=== PATIENT | female | born 1990 | race Caucasian/White ===

== ENCOUNTER 2017-08-07 19:49 | Emergency (ER) | payer OTHER ==
[2017-08-07] MEDS ORDERED: Phenergan 25 MG INJ IV ONE (20:28)
[2017-08-07] MEDS ORDERED: SUBLIMAZE 100 MCG/2 ML IV ONE (20:28)
[2017-08-07] MEDS ORDERED: Sodium Chloride 0.9% 1000 ML 1,000 ML IV STA ×2 (20:28→22:11)
[2017-08-07] MEDS ORDERED: SUBLIMAZE 100 MCG/2 ML ONE (20:33)
[2017-08-07] MEDS ORDERED: Phenergan 25 MG INJ ONE (20:33)
[2017-08-07] MEDS ORDERED: Sodium Chloride 0.9% 1000 ML 1,000 ML ONE ×2 (20:34→22:34)
--- NOTE | 2017-08-07 20:35 | ERPHSYRPT ---
- History of Present Illness Time Seen by Provider: 08/07/17 20:23 Historian: patient Exam Limitations: no limitations Patient Subjective Stated Complaint: N/V Triage Nursing Assessment: Pt presents to the ED with complaints of emesis x2 days, worsening today. Pt states she was seen at [facility] today, given IM zofran with no improvements in symptoms. Pt is A&O x4, no distress noted, skin PWD. Physician History: FOR THE PAST 3 DAYS PT HAS HAD 30 EPISODES OF VOMITING WITHOUT BLOOD, DIARRHEA X2 WITHOUT BLOOD, DIAPHORESIS, CONSTANT DULL/STABBING LOWER ABDOMINAL PAIN AND CHILLS; FOR THE PAST 2 DAYS A FRONTAL HEADACHE; TODAY COUGH. Allergies/Adverse Reactions: morphine Allergy (Unknown, Verified 04/03/12 21:50) Home Medications: Duloxetine HCl 30 mg [Cymbalta 30 MG Capsule] 30 mg PO DAILY 11/16/16 [ History] Ergocalciferol (Vitamin D2) [Vitamin D] 50,000 unit PO .2XWEEKLY 11/16/16 [ History] Metformin HCl 500 mg [Glucophage 500 MG] 500 mg PO BID 11/16/16 [History] Pregabalin 50 mg [Lyrica 50MG] 75 mg PO BID 01/16/17 [History] Naproxen 500 mg [Naprosyn 500 MG] 500 mg PO BID 08/07/17 [History] Omeprazole 20 MG [Prilosec 20 mg] 20 mg PO 08/07/17 [History] Topiramate 100 mg [Topamax 100 MG] 50 mg PO QHS 08/07/17 [History] Hx Tetanus, Diphtheria Vaccination/Date Given: Yes Hx Influenza Vaccination/Date Given: No Hx Pneumococcal Vaccination/Date Given: No Immunizations Up to Date: No - Review of Systems Constitutional: Chills Respiratory: Cough Abdominal/Gastrointestinal: Abdominal Pain, Vomiting, Diarrhea Neurological: Headache Endocrine: Excessive Sweating All Other Systems: Reviewed and Negative - Past Medical History Pertinent Past Medical History: No Neurological History: No Pertinent History ENT History: No Pertinent History Cardiac History: No Pertinent History Respiratory History: No Pertinent History Endocrine Medical History: No Pertinent History Musculoskeletal History: Arthritis GI Medical History: No Pertinent History History: No Pertinent History Psycho-Social History: Depression Female Reproductive Disorders: No Pertinent History Other Medical History: PCOS, Only has 1 Kidney. Arthritis and DDD in back. - Past Surgical History Past Surgical History: Yes Neuro Surgical History: No Pertinent History Cardiac: No Pertinent History Respiratory: No Pertinent History Gastrointestinal: No Pertinent History Genitourinary: No Pertinent History Musculoskeletal: No Pertinent History Female Surgical History: Section - Social History Smoking Status: Current every day smoker How long have you smoked: 10years Exposure to second hand smoke: Yes Drug Use: none Patient Lives Alone: No - Female History Hx Last Menstrual Period: 07/14/2017 Hx Now: No - Nursing Vital Signs Nursing Vital Signs: Initial Vital Signs Temperature 98.0 F 08/07/17 20:13 Pulse Rate 88 08/07/17 20:13 Respiratory Rate 16 08/07/17 20:13 Blood Pressure 126/73 08/07/17 20:13 O2 Sat by Pulse Oximetry 100 08/07/17 20:13 Pain Scale Pain Intensity 0 - Physical Exam General Appearance: alert Eye Exam: PERRL/EOMI Ears, Nose, Throat Exam: TMs normal, dry mucous membranes, pharyngeal erythema Neck Exam: normal inspection Respiratory Exam: lungs clear Cardiovascular Exam: normal heart sounds Gastrointestinal/Abdomen Exam: soft, tenderness (MILD LOWER ABDOMINAL TENDERNESS ), other (B.S. MODERATELY HYPERACTIVE AND NORMOTONIC), No guarding Back Exam: normal range of motion Extremity Exam: normal inspection, No pedal edema Neurologic Exam: alert, cooperative Skin Exam: warm, dry SpO2 Interpretation: normal SpO2: 100 Oxygen Delivery: Room Air - Course Nursing assessment & vital signs reviewed: Yes Ordered Tests: Active Orders 24 hr Category Date Time Status Clean Catch Urine Specimen STAT Care 08/08/17 00:13 Active IV Insertion STAT Care 08/07/17 20:24 Active AMYLASE Stat Lab 08/07/17 20:40 Completed CBC W DIFF Stat Lab 08/07/17 20:40 Completed CMP Stat Lab 08/07/17 20:40 Completed CULTURE,URINE Stat Lab 08/08/17 00:30 Received HCG QUALITATIVE,SERUM Stat Lab 08/07/17 20:40 Completed LIPASE Stat Lab 08/07/17 20:40 Completed MAG [MAGNESIUM] Stat Lab 08/07/17 20:40 Completed UA W/ MICROSCOPIC Stat Lab 08/08/17 00:30 Completed Urine Triage Profile Stat Lab 08/07/17 20:29 Ordered Medication Summary Generic Name Dose Route Start Last Admin Trade Name Irma PRN Reason Stop Dose Admin Ceftriaxone Sodium/Dextrose 1 g in 50 mls @ 100 mls/hr 08/08/17 00:54 Rocephin 1 Gm-D5w 50 Ml Bag IV 08/08/17 01:23 STAT STA Discontinued Medications Generic Name Dose Route Start Last Admin Trade Name Irma PRN Reason Stop Dose Admin Fentanyl Citrate 50 mcg 08/07/17 20:28 08/07/17 20:39 Sublimaze 100 Mcg/2 Ml IV 08/07/17 20:29 50 mcg STAT ONE Administration Fentanyl Citrate Confirm 08/07/17 20:33 Sublimaze 100 Mcg/2 Ml Administered 08/07/17 20:34 Dose 100 mcg .ROUTE .STK-MED ONE Sodium Chloride 1,000 mls @ 999 mls/hr 08/07/17 20:28 08/07/17 20:39 Sodium Chloride 0.9% 1000 Ml IV 08/07/17 21:28 999 mls/hr .Q1H1M STA Administration Sodium Chloride Confirm 08/07/17 20:34 Sodium Chloride 0.9% 1000 Ml Administered 08/07/17 20:35 Dose 1,000 mls @ ud .ROUTE .STK-MED ONE Sodium Chloride 1,000 mls @ 999 mls/hr 08/07/17 22:11 08/07/17 22:36 Sodium Chloride 0.9% 1000 Ml IV 08/07/17 23:11 999 mls/hr .Q1H1M STA Administration Sodium Chloride Confirm 08/07/17 22:34 Sodium Chloride 0.9% 1000 Ml Administered 08/07/17 22:35 Dose 1,000 mls @ ud .ROUTE .STK-MED ONE Promethazine HCl 12.5 mg 08/07/17 20:28 08/07/17 20:39 Phenergan 25 Mg Inj IV 08/07/17 20:29 12.5 mg STAT ONE Administration Promethazine HCl Confirm 08/07/17 20:33 Phenergan 25 Mg Inj Administered 08/07/17 20:34 Dose 25 mg .ROUTE .STK-MED ONE Lab/Rad Data: Laboratory Result Diagrams 08/07/17 20:40 08/07/17 20:40 Laboratory Results 08/08/17 08/07/17 08/07/17 Range/Units 00:30 20:40 20:40 WBC (4.0-10.5) K/mm3 RBC (4.1-5.4) M/mm3 Hgb (12.0-16.0) gm/dl Hct (35-47) % MCV (78-100) fl MCH (26-32) pg MCHC (32-36) g/dl RDW (11.5-14.0) % Plt Count (150-450) K/mm3 MPV (6-9.5) fl Gran % (36.0-66.0) % Lymphocytes % (24.0-44.0) % Monocytes % (0.0-12.0) % Eosinophils % (0.00-5.0) % Basophils % (0.0-0.4) % Basophils # (0-0.4) Sodium (136-145) mEq/L Potassium (3.5-5.1) mEq/L Chloride (98-107) mEq/L Carbon Dioxide (21-32) mEq/L Anion Gap (5-15) MEQ/L BUN (9-20) mg/dL Creatinine (0.55-1.30) mg/dl Estimated GFR ML/MIN Glucose (70-110) MG/DL Calcium (8.5-10.1) mg/dL Magnesium 1.8 (1.8-2.4) mg/dL Total Bilirubin (0.2-1.0) mg/dL AST (15-37) U/L ALT (12-78) U/L Alkaline Phosphatase (46-116) U/L Serum Total Protein (6.4-8.2) gm/dL Albumin (3.4-5.0) g/dL Amylase (25-115) U/L Lipase (73-393) U/L Serum , Qual NEGATIVE (Negative) Ur Collection Type CCMS Urine Color YELLOW (YELLOW) Urine Appearance SLIGHTLY CLOUDY (CLEAR) Urine pH 5.0 (5-6) Ur Specific [employer] 1.020 (1.005-1.025) Urine Protein NEGATIVE (Negative) Urine Ketones NEGATIVE (NEGATIVE) Urine Blood NEGATIVE (0-5) Gary/ul Urine Nitrite NEGATIVE (NEGATIVE) Urine Bilirubin NEGATIVE (NEGATIVE) Urine Urobilinogen NORMAL (0-1) mg/dL Ur Leukocyte Esterase TRACE (NEGATIVE) Urine Microscopic WBC 10-15 (0-5) /HPF Ur Epithelial Cells MODERATE (FEW) /HPF Urine Bacteria FEW (NEGATIVE) /HPF Urine Mucus SLIGHT (NEGATIVE) /HPF Urine Culture Reflexed YES (NO) Urine Glucose NEGATIVE (NEGATIVE) mg/dL Specimen Received 08-08-17 0050 08/07/17 08/07/17 Range/Units 20:40 20:40 WBC 5.2 (4.0-10.5) K/mm3 RBC 4.08 L (4.1-5.4) M/mm3 Hgb 11.7 L (12.0-16.0) gm/dl Hct 37.7 (35-47) % MCV 92.4 (78-100) fl MCH 28.6 (26-32) pg MCHC 31.0 L (32-36) g/dl RDW 15.0 H (11.5-14.0) % Plt Count 234 (150-450) K/mm3 MPV 10.9 H (6-9.5) fl Gran % 39.2 (36.0-66.0) % Lymphocytes % 46.9 H (24.0-44.0) % Monocytes % 9.7 (0.0-12.0) % Eosinophils % 3.8 (0.00-5.0) % Basophils % 0.4 (0.0-0.4) % Basophils # 0.02 (0-0.4) Sodium 141 (136-145) mEq/L Potassium 4.3 (3.5-5.1) mEq/L Chloride 111 H (98-107) mEq/L Carbon Dioxide 22.2 (21-32) mEq/L Anion Gap 11.7 (5-15) MEQ/L BUN 18 (9-20) mg/dL Creatinine 0.84 (0.55-1.30) mg/dl Estimated GFR > 60 ML/MIN Glucose 97 (70-110) MG/DL Calcium 8.4 L (8.5-10.1) mg/dL Magnesium (1.8-2.4) mg/dL Total Bilirubin 0.20 (0.2-1.0) mg/dL AST 12 L (15-37) U/L ALT 15 (12-78) U/L Alkaline Phosphatase 80 (46-116) U/L Serum Total Protein 7.2 (6.4-8.2) gm/dL Albumin 3.5 (3.4-5.0) g/dL Amylase 75 (25-115) U/L Lipase 143 (73-393) U/L Serum , Qual (Negative) Ur Collection Type Urine Color (YELLOW) Urine Appearance (CLEAR) Urine pH (5-6) Ur Specific [employer] (1.005-1.025) Urine Protein (Negative) Urine Ketones (NEGATIVE) Urine Blood (0-5) Gary/ul Urine Nitrite (NEGATIVE) Urine Bilirubin (NEGATIVE) Urine Urobilinogen (0-1) mg/dL Ur Leukocyte Esterase (NEGATIVE) Urine Microscopic WBC (0-5) /HPF Ur Epithelial Cells (FEW) /HPF Urine Bacteria (NEGATIVE) /HPF Urine Mucus (NEGATIVE) /HPF Urine Culture Reflexed (NO) Urine Glucose (NEGATIVE) mg/dL Specimen Received - Departure Time of Disposition: 01:04 Departure Disposition: Home Clinical Impression: UTI, VOMITING, DIARRHEA, ABDOMINAL PAIN Condition: Stable Critical Care Time: No Referrals: MARCELO BAINS MD [Primary Care Provider] - Instructions: Vomiting -- Adult, Diarrhea and Traveler's Diarrhea -- Adult, Urinary Tract Infection, Adult (DC) Additional Instructions: FOLLOW UP WITH PRIVATE DOCTOR TOMORROW. Prescriptions: Promethazine HCl 25 mg [Phenergan 25 mg] 25 mg PO Q4H PRN PRN #14 tablet PRN Reason: Nausea/Vomiting Smz/Tmp Ds Tablet [Bactrim Ds Tablet] 1 udtab PO BID #20 tablet
[2017-08-07 20:46] LABS: BASOPHIL % 0.4 % (0.0-0.4); Basophil (Absolute #) 0.02 (0-0.4); Eosinophil % 3.8 % (0.00-5.0); Granulocyte Absolute (ANC) 2.05 (1.4-6.9); Granulocytes % 39.2 % (36.0-66.0); Hematocrit 37.7 % (35-47); Hemoglobin 11.7 gm/dl (12.0-16.0); Lymphocyte (Absolute #) 2.46 (1.0-4.6); Lymphocytes % 46.9 % (24.0-44.0); Mean Cell Volume 92.4 fl (78-100); Mean Platelet Volume 10.9 fl (6-9.5); Monocyte (Absolute #) 0.51 (0.0-1.3); Monocytes % 9.7 % (0.0-12.0); Platelet Count 234 K/mm3 (150-450); Red Blood Count 4.08 M/mm3 (4.1-5.4); White Blood Count 5.2 K/mm3 (4.0-10.5)
[2017-08-07 20:53] LABS: Mean Corpuscular Hemoglobin 28.6 pg (26-32)
[2017-08-07 21:22] LABS: ALBUMIN 3.5 g/dL (3.4-5.0); ALKALINE PHOSPHATASE 80 U/L (46-116); AMYLASE 75 U/L (25-115); ANION GAP 11.7 MEQ/L (5-15); BLOOD UREA NITROGEN 18 mg/dL (9-20); CHLORIDE 111 mEq/L (98-107); Calcium 8.4 mg/dL (8.5-10.1); Carbon Dioxide 22.2 mEq/L (21-32); Creatinine 1 0.84 mg/dl (0.55-1.30); EST GLOMERULAR FILTRATION RATE > 60 ML/MIN; Glucose 97 MG/DL (70-110); LIPASE 143 U/L (73-393); Potassium 4.3 mEq/L (3.5-5.1); SGOT/AST 12 U/L (15-37); SGPT/ALT 15 U/L (12-78); SODIUM 141 mEq/L (136-145); Total Protein 7.2 gm/dL (6.4-8.2)
[2017-08-08 00:50] LABS: Appearance SLIGHTLY CLOUDY (CLEAR); Bilirubin NEGATIVE (NEGATIVE); Blood NEGATIVE Ery/ul (0-5); Glucose NEGATIVE (NEGATIVE); Ketones NEGATIVE (NEGATIVE); Leukocyte Esterase TRACE (NEGATIVE); Nitrite NEGATIVE (NEGATIVE); Protein,Urine Dip NEGATIVE (Negative); Urobilinogen NORMAL mg/dL (0-1)
[2017-08-08 00:52] LABS: Bacteria FEW /HPF (NEGATIVE); Epithelial Cells MODERATE /HPF (FEW); Mucus SLIGHT /HPF (NEGATIVE)
[2017-08-08 00:53] LABS: Amphetamine,Urine NEG. (NEGATIVE); Barbiturate,Urine NEG. (NEGATIVE); Benzodiazepine,Urine NEG. (NEGATIVE); Cocaine,Urine NEG. (NEGATIVE); Methadone,Urine NEG. (NEGATIVE); Opiate,Urine NEG. (NEGATIVE); PCP,Urine NEG. (NEGATIVE); THC,Urine NEG. (NEGATIVE)
[2017-08-08] MEDS ORDERED: ROCEPHIN 1 Gm-D5w 50 ml Bag** 1 G/50 ML IVPB IV STA (00:54)
[2017-08-08] MEDS ORDERED: ROCEPHIN 1 Gm-D5w 50 ml Bag** 1 G/50 ML IVPB IV ONE (01:01)
[2017-08-08 01:02] VITALS: O2SAT 100
[2017-08-08 01:49] VITALS: BP 122/60; PULSE 73
== END 2017-08-08 01:48 | disposition home or self-care (01) ==
LOC: ED 19:49
DX: N39.0 Urinary tract infection, site not specified (principal); R11.10 Vomiting, unspecified; R19.7 Diarrhea, unspecified; R61 Generalized hyperhidrosis; R10.30 Lower abdominal pain, unspecified; R51 Headache
CPT/HCPCS: 36000; 36415; 80053; 80307; 81000; 82150; 83690; 83735; 84703; 85025; 87086; 96360; 96361; 96365; 96374; 96375; 99284; J0696; J2550; J3010

== ENCOUNTER 2017-10-03 08:03 | Day surgery (SDC) | payer OTHER ==
[2012-04-04 00:37] VITALS: BP 128/80
[2017-10-03] MEDS ORDERED: DIPRIVAN 200 MG/20 ML IV ONE (08:04)
[2017-10-03] MEDS ORDERED: LIDOCAINE HCL 1% AMPUL 5 ML IJ ONE (10:00)
[2017-10-03] MEDS ORDERED: Marcaine 0.5% SDV 10 ML ONE (10:00)
[2017-10-03] MEDS ORDERED: LIDOCAINE HCL 2% 100 MG/5 ML ONE (10:00)
--- NOTE | 2017-10-03 10:24 | XRAY ---
Indication: L4-L5 and L5-S1 facet injection. Intraoperative fluoroscopy was provided for 1 minute 20 seconds. 2 digital spot images submitted for interpretation demonstrates 3 posterior spinal needle tips projecting over the left L3-L4, L4-L5, and L5-S1 facets. Correlate with intraoperative findings/report.
--- NOTE | 2017-10-03 10:36 | XRAY ---
1 minute and 20 seconds fluoroscopy time in surgery for L4-5 and L5,S1 facette joint injection.
--- NOTE | 2017-10-04 08:22 | OP ---
DATE OF PROCEDURE: 10/03/2017 0855 SURGEON: Dev Galarza D.O. PREOPERATIVE DIAGNOSIS: Degenerative lumbar spine disease, spondylosis, low back pain. POSTOPERATIVE DIAGNOSIS: Degenerative lumbar spine disease, spondylosis, low back pain. PROCEDURE PERFORMED: Left L3, L4, L5 medial branch block under fluoroscopic guidance. DESCRIPTION OF THE PROCEDURE: The patient was taken to the operating room and placed in the prone position on the table. Skin at the injection site was prepped and draped in sterile fashion. Under fluoroscopy, bony anatomy of the targeted injection site was visualized. Induction agent was given as per anesthesia while vital signs were monitored. Local anesthetic agent of 0.5 cc of 1% lidocaine preservative free was introduced to anesthetize the skin and the subcutaneous tissue through the injection site. Under fluoroscopic guidance, a #20 gauge standard spinal needle was advanced into the target medial branch through the oblique approach. The preservative free 0.5 cc of 1% lidocaine and 0.5 cc of 0.25% Marcaine were injected into each of the targeted medial branch nerve. After the needle was being removed, the skin was cleansed with alcohol and then a bandage was applied. No complications or adverse consequences were observed. The patient was returned to the holding area until stabilized before discharge to home. Before the procedure the pain level was 8 out of 10. After the procedure the pain level is 4 out of 10. The patient will be followed up within ten days after the injection for re-evaluation.
== END 2017-10-03 09:45 | disposition home or self-care (01) ==
LOC: SDC-PAIN 08:03
PROVIDERS: ATTEND Internal Medicine
DX: M47.816 Spondylosis without myelopathy or radiculopathy, lumbar region (principal); M54.5 Low back pain; M47.26 Other spondylosis with radiculopathy, lumbar region; Z79.891 Long term (current) use of opiate analgesic
CPT/HCPCS: 64493; 64494; 64495; 72020; 77003; J2704

== ENCOUNTER 2018-07-24 19:38 | Emergency (ER) | payer OTHER ==
[2018-07-24] MEDS ORDERED: Sodium Chloride 0.9% 1000 ML 1,000 ML IV STA (20:29)
[2018-07-24] MEDS ORDERED: Sodium Chloride 0.9% 1000 ML 1,000 ML ONE (21:16)
[2018-07-24 21:44] LABS: BASOPHIL % 0.4 % (0.0-0.4); Basophil (Absolute #) 0.02 (0-0.4); Eosinophil % 1.8 % (0.00-5.0); Granulocyte Absolute (ANC) 2.63 (1.4-6.9); Granulocytes % 48.5 % (36.0-66.0); Hematocrit 37.7 % (35-47); Hemoglobin 11.5 gm/dl (12.0-16.0); Lymphocyte (Absolute #) 2.25 (1.0-4.6); Lymphocytes % 41.4 % (24.0-44.0); Mean Cell Volume 90.6 fl (78-100); Mean Corpuscular Hemoglobin 27.6 pg (26-32); Mean Corpuscular Hgb Concent. 30.5 g/dl (32-36); Mean Platelet Volume 11.2 fl (6-9.5); Monocyte (Absolute #) 0.43 (0.0-1.3); Monocytes % 7.9 % (0.0-12.0); Platelet Count 299 K/mm3 (150-450); Red Blood Count 4.16 M/mm3 (4.1-5.4); White Blood Count 5.4 K/mm3 (4.0-10.5)
[2018-07-24 21:59] LABS: ALBUMIN 4.2 g/dL (3.5-5.0); ALKALINE PHOSPHATASE 105 U/L (38-126); ANION GAP 13.2 MEQ/L (5-15); BLOOD UREA NITROGEN 16 mg/dL (7-17); CHLORIDE 110 mmol/L (98-107); Calcium 9.6 mg/dL (8.4-10.2); Carbon Dioxide 24 mmol/L (22-30); Creatinine 1 0.79 mg/dL (0.52-1.04); Glucose 101 mg/dL (74-106); Potassium 4.2 mmol/L (3.5-5.1); SGOT/AST 27 U/L (14-36); SGPT/ALT 22 U/L (0-35); SODIUM 143 mmol/L (137-145); Total Protein 7.9 g/dL (6.3-8.2)
[2018-07-24 22:04] LABS: Group A Strep NEGATIVE (NEGATIVE)
[2018-07-24 22:13] LABS: INFLUENZA A NEGATIVE (NEGATIVE); INFLUENZA B NEGATIVE (NEGATIVE); RESPIRATORY SYNCTIAL VIRUS NEGATIVE (Negative)
--- NOTE | 2018-07-24 23:05 | ERPHSYRPT ---
- History of Present Illness Source: patient Exam Limitations: no limitations Patient Subjective Stated Complaint: pt is alert and oriented. pt is ambulatory with a steady gait. pt comes in with complaint of cough, fever, runny nose, and sore throat since yesterday. pt states she was sent home tonight from work. pt lung sounds clear. pt denies n/v/d. pt states that she has pain with coughing. pt denies coughing up sputum. Triage Nursing Assessment: see above Physician History: Pt is a 28 y/o female that presented to the ED with complains of fever, malaise , and cough. Pt has no V/D. She does have nausea. Timing/Duration: today Cough Quality/Degree: dry cough Modifying Factors: Improves With: nothing Associated Symptoms: fever, cough, headache Allergies/Adverse Reactions: morphine Allergy (Unknown, Verified 04/03/12 21:50) gabapentin Allergy (Verified 07/24/18 20:24) Home Medications: Duloxetine HCl 30 mg [Cymbalta 30 MG Capsule] 30 mg PO DAILY 11/16/16 [ History] Ergocalciferol (Vitamin D2) [Vitamin D] 50,000 unit PO .2XWEEKLY 11/16/16 [ History] Metformin HCl 500 mg [Glucophage 500 MG] 500 mg PO BID 11/16/16 [History] Omeprazole 20 MG [Prilosec 20 mg] 20 mg PO DAILY 08/07/17 [History] Pregabalin [Lyrica 150Mg] 150 mg PO BID 08/13/17 [History] Topiramate 100 mg [Topamax 100 MG] 400 mg PO HS 10/29/17 [History] Hx Tetanus, Diphtheria Vaccination/Date Given: Yes Hx Influenza Vaccination/Date Given: No Hx Pneumococcal Vaccination/Date Given: No Immunizations Up to Date: Yes - Review of Systems Constitutional: Fever, Lethargy Eyes: No Symptoms Ears, Nose, & Throat: Nose Congestion, Sinus Drainage Respiratory: Cough Cardiac: No Chest Pain, No Edema, No Syncope Abdominal/Gastrointestinal: Nausea, No Abdominal Pain, No Vomiting, No Diarrhea Genitourinary Symptoms: No Dysuria Musculoskeletal: No Back Pain, No Neck Pain Neurological: No Dizziness, No Focal Weakness, No Sensory Changes - Past Medical History Pertinent Past Medical History: No Neurological History: No Pertinent History ENT History: No Pertinent History Cardiac History: No Pertinent History Respiratory History: No Pertinent History Endocrine Medical History: No Pertinent History Musculoskeletal History: Arthritis GI Medical History: No Pertinent History History: No Pertinent History Psycho-Social History: Depression Female Reproductive Disorders: No Pertinent History Other Medical History: PCOS, Only has 1 Kidney. Arthritis and DDD in back. - Past Surgical History Past Surgical History: Yes Neuro Surgical History: No Pertinent History Cardiac: No Pertinent History Respiratory: No Pertinent History Gastrointestinal: No Pertinent History Genitourinary: No Pertinent History Musculoskeletal: No Pertinent History Female Surgical History: Section - Social History Smoking Status: Current every day smoker How long have you smoked: 12 years Exposure to second hand smoke: Yes Drug Use: none Patient Lives Alone: No - Female History Hx Now: No - Nursing Vital Signs Nursing Vital Signs: Initial Vital Signs Temperature 97.7 F 07/24/18 20:18 Pulse Rate 84 07/24/18 20:18 Respiratory Rate 16 07/24/18 20:18 Blood Pressure 131/70 07/24/18 20:18 O2 Sat by Pulse Oximetry 98 07/24/18 20:18 Pain Scale Pain Intensity 3 - Physical Exam General Appearance: no apparent distress, alert Eye Exam: PERRL/EOMI, eyes nml inspection Ears, Nose, Throat Exam: normal ENT inspection, TMs normal, pharynx normal, moist mucous membranes Respiratory Exam: normal breath sounds, lungs clear, No respiratory distress Cardiovascular Exam: regular rate/rhythm, normal heart sounds Gastrointestinal/Abdomen Exam: soft, No tenderness SpO2: 96 - Course Nursing assessment & vital signs reviewed: Yes Ordered Tests: Active Orders 24 hr Category Date Time Status CHEST 2 VIEWS (PA AND LAT) Stat Exams 07/24/18 20:30 Ordered CBC W DIFF Stat Lab 07/24/18 21:00 Completed CMP Stat Lab 07/24/18 21:00 Completed HCG,QUALITATIVE URINE Stat Lab 07/24/18 20:30 Uncollected Lactic Acid Stat Lab 07/24/18 20:29 Completed UA W/RFX UR CULTURE Stat Lab 07/24/18 20:30 Uncollected Medication Summary Discontinued Medications Generic Name Dose Route Start Last Admin Trade Name Freq PRN Reason Stop Dose Admin Sodium Chloride 1,000 mls @ 999 mls/hr 07/24/18 20:29 07/24/18 22:31 Sodium Chloride 0.9% 1000 Ml IV 07/24/18 21:29 Infused .Q1H1M STA Infusion Sodium Chloride Confirm 07/24/18 21:16 Sodium Chloride 0.9% 1000 Ml Administered 07/24/18 21:17 Dose 1,000 mls @ ud .ROUTE .[facility]-MED ONE Lab/Rad Data: Laboratory Result Diagrams 07/24/18 21:00 07/24/18 21:00 Laboratory Results 07/24/18 07/24/18 07/24/18 Range/Units 21:25 21:00 21:00 WBC 5.4 (4.0-10.5) K/mm3 RBC 4.16 (4.1-5.4) M/mm3 Hgb 11.5 L (12.0-16.0) gm/dl Hct 37.7 (35-47) % MCV 90.6 (78-100) fl MCH 27.6 (26-32) pg MCHC 30.5 L (32-36) g/dl RDW 15.0 H (11.5-14.0) % Plt Count 299 (150-450) K/mm3 MPV 11.2 H (6-9.5) fl Gran % 48.5 (36.0-66.0) % Eos # (Auto) 0.10 (0-0.5) Absolute Lymphs (auto) 2.25 (1.0-4.6) Absolute Monos (auto) 0.43 (0.0-1.3) Lymphocytes % 41.4 (24.0-44.0) % Monocytes % 7.9 (0.0-12.0) % Eosinophils % 1.8 (0.00-5.0) % Basophils % 0.4 (0.0-0.4) % Absolute Granulocytes 2.63 (1.4-6.9) Basophils # 0.02 (0-0.4) Sodium 143 (137-145) mmol/L Potassium 4.2 (3.5-5.1) mmol/L Chloride 110 H (98-107) mmol/L Carbon Dioxide 24 (22-30) mmol/L Anion Gap 13.2 (5-15) MEQ/L BUN 16 (7-17) mg/dL Creatinine 0.79 (0.52-1.04) mg/dL Estimated GFR > 60.0 ML/MIN Glucose 101 (74-106) mg/dL Lactic Acid (0.4-2.0) Calcium 9.6 (8.4-10.2) mg/dL Total Bilirubin 0.30 (0.2-1.3) mg/dL AST 27 (14-36) U/L ALT 22 (0-35) U/L Alkaline Phosphatase 105 (38-126) U/L Serum Total Protein 7.9 (6.3-8.2) g/dL Albumin 4.2 (3.5-5.0) g/dL Influenza Type A Ag NEGATIVE (NEGATIVE) Influenza Type B Ag NEGATIVE (NEGATIVE) RSV (PCR) NEGATIVE (Negative) Group A Strep Antibody NEGATIVE (NEGATIVE) 07/24/18 Range/Units 20:29 WBC (4.0-10.5) K/mm3 RBC (4.1-5.4) M/mm3 Hgb (12.0-16.0) gm/dl Hct (35-47) % MCV (78-100) fl MCH (26-32) pg MCHC (32-36) g/dl RDW (11.5-14.0) % Plt Count (150-450) K/mm3 MPV (6-9.5) fl Gran % (36.0-66.0) % Eos # (Auto) (0-0.5) Absolute Lymphs (auto) (1.0-4.6) Absolute Monos (auto) (0.0-1.3) Lymphocytes % (24.0-44.0) % Monocytes % (0.0-12.0) % Eosinophils % (0.00-5.0) % Basophils % (0.0-0.4) % Absolute Granulocytes (1.4-6.9) Basophils # (0-0.4) Sodium (137-145) mmol/L Potassium (3.5-5.1) mmol/L Chloride (98-107) mmol/L Carbon Dioxide (22-30) mmol/L Anion Gap (5-15) MEQ/L BUN (7-17) mg/dL Creatinine (0.52-1.04) mg/dL Estimated GFR ML/MIN Glucose (74-106) mg/dL Lactic Acid 1.6 (0.4-2.0) Calcium (8.4-10.2) mg/dL Total Bilirubin (0.2-1.3) mg/dL AST (14-36) U/L ALT (0-35) U/L Alkaline Phosphatase (38-126) U/L Serum Total Protein (6.3-8.2) g/dL Albumin (3.5-5.0) g/dL Influenza Type A Ag (NEGATIVE) Influenza Type B Ag (NEGATIVE) RSV (PCR) (Negative) Group A Strep Antibody (NEGATIVE) - Progress Progress: unchanged Air Movement: fair Progress Note: 07/24/18 23:08 Pt had a work up in the ED. She is negative to influenza, RSV and strep. Pt has no leukocytosis, and does have mild fever. She is safe to d/c to home and she should use OTC meds for her symptoms, and have plenty of fluids. Pt should f/u with her PCP. Blood Culture(s) Obtained: No Antibiotics given: No Will see patient in: office Counseled pt/family regarding: need for follow-up - Departure Time of Disposition: 23:10 Departure Disposition: Home Clinical Impression: Viral respiratory illness Condition: Stable Critical Care Time: No Referrals: MARCELO BAINS MD [Primary Care Provider] - Additional Instructions: Use OTC meds for symptoms control. F/U with PCP. Forms: Work/School Release Form
[2018-07-24 23:34] VITALS: BP 98/55; PULSE 89; O2SAT 98
== END 2018-07-24 23:33 | disposition home or self-care (01) ==
LOC: ED 19:38
DX: B97.4 Respiratory syncytial virus as the cause of diseases classified elsewhere (principal); R50.9 Fever, unspecified; F32.9 Major depressive disorder, single episode, unspecified; M19.90 Unspecified osteoarthritis, unspecified site; Z90.5 Acquired absence of kidney
CPT/HCPCS: 36415; 80053; 83605; 85025; 87631; 87651; 96374; 99284

== ENCOUNTER 2018-11-04 17:46 | Emergency (ER) | payer OTHER ==
--- NOTE | 2018-11-04 18:45 | ERPHSYRPT ---
- History of Present Illness Source: patient Exam Limitations: no limitations Patient Subjective Stated Complaint: states was at work at [employer] and was walking across floor and twisted left ankle at 1630 today. Triage Nursing Assessment: to room per w/c, skin w/d, color normal. left ankle slightly swollen, no deformity noted. good pedal pulse. foot warm. Method of Injury: twisted Occurred: just prior to arrival Quality: constant, throbbing Severity of Pain-Max: moderate Severity of Pain-Current: moderate Lower Extremities Pain: ankle: left (Severe pain) Modifying Factors: Improves With: cold therapy, pain medication Associated Symptoms: none Hx Tetanus, Diphtheria Vaccination/Date Given: No Hx Influenza Vaccination/Date Given: No Hx Pneumococcal Vaccination/Date Given: No <MARISSA GARNICA - Last Filed: 11/04/18 18:40> <ANDREA GREEN - Last Filed: 11/04/18 20:07> - History of Present Illness Physician History: Pt is a 28 y/o female that was walking today across the floor, her L ankle twisted and she heard a loud snap. Pt has severe tenderness of the ankle on L and the top foot. (MARISSA GARNICA) Allergies/Adverse Reactions: morphine Allergy (Unknown, Verified 11/04/18 18:05) gabapentin Allergy (Verified 11/04/18 18:05) Home Medications: Duloxetine HCl 30 mg [Cymbalta 30 MG Capsule] 30 mg PO DAILY 11/16/16 [ History] Ergocalciferol (Vitamin D2) [Vitamin D] 50,000 unit PO .2XWEEKLY 11/16/16 [ History] Metformin HCl 500 mg [Glucophage 500 MG] 500 mg PO BID 11/16/16 [History] Omeprazole 20 MG [Prilosec 20 mg] 20 mg PO DAILY 08/07/17 [History] Pregabalin [Lyrica 150Mg] 150 mg PO BID 08/13/17 [History] Topiramate 100 mg [Topamax 100 MG] 400 mg PO HS 10/29/17 [History] Oxycodone HCl/Acetaminophen [Percocet 5-325 mg Tablet] 1 each PO BID 11/04/18 [ History] - Review of Systems Constitutional: No Fever, No Chills Respiratory: No Cough, No Dyspnea Cardiac: No Chest Pain, No Edema, No Syncope Abdominal/Gastrointestinal: No Abdominal Pain, No Nausea, No Vomiting, No Diarrhea Musculoskeletal: Joint Pain (L ankle) <MARISSA GARNICA Last Filed: 11/04/18 18:40> - Past Medical History Pertinent Past Medical History: Yes Neurological History: No Pertinent History ENT History: No Pertinent History Cardiac History: No Pertinent History Respiratory History: No Pertinent History Endocrine Medical History: No Pertinent History Musculoskeletal History: Arthritis GI Medical History: No Pertinent History History: No Pertinent History Psycho-Social History: Depression Female Reproductive Disorders: No Pertinent History Other Medical History: PCOS, Only has 1 Kidney. Arthritis and DDD in back. - Past Surgical History Past Surgical History: Yes Neuro Surgical History: No Pertinent History Cardiac: No Pertinent History Respiratory: No Pertinent History Gastrointestinal: No Pertinent History Genitourinary: No Pertinent History Musculoskeletal: No Pertinent History Female Surgical History: Section - Social History Smoking Status: Current every day smoker How long have you smoked: 10 Exposure to second hand smoke: Yes Drug Use: none Patient Lives Alone: No - Female History Hx Last Menstrual Period: two weeks ago Hx Now: No <DANIKAMARISSA Last Filed: 11/04/18 18:40> - Physical Exam General Appearance: mild distress Neck Exam: non-tender, supple Ankle Exam: left ankle: limited range of motion, pain, soft tissue tenderness Foot Exam: left foot: pain, soft tissue tenderness Neuro/Tendon Exam: normal sensation, normal motor functions SpO2: 97 <DANIKAMARISSA Filed: 11/04/18 18:40> - Nursing Vital Signs Nursing Vital Signs: Initial Vital Signs Temperature 97.8 F 11/04/18 18:01 Pulse Rate 96 H 11/04/18 18:01 Respiratory Rate 16 11/04/18 18:01 Blood Pressure 120/73 11/04/18 18:01 O2 Sat by Pulse Oximetry 97 11/04/18 18:01 Pain Scale Pain Intensity 8 - Course Nursing assessment & vital signs reviewed: Yes <MARISSA GARNICA Filed: 11/04/18 18:40> - Radiology Exams Left Ankle X-ray Interpretation: Interpreted by me, Negative, No Fracture (SOFT TISSUE SWELLING) Left Foot X-ray Interpretation: Interpreted by me, Negative, No Fracture <ANDREA GREEN - Last Filed: 11/04/18 20:07> Ordered Tests: Active Orders 24 hr Category Date Time Status Crutches STAT Care 11/04/18 19:26 Active Splint STAT Care 11/04/18 19:25 Active ANKLE (3 VIEWS) Stat Exams 11/04/18 18:53 Taken FOOT (MINIMUM 3 VIEWS) Stat Exams 11/04/18 19:38 Taken Medication Summary Discontinued Medications Generic Name Dose Route Start Last Admin Trade Name Irma PRN Reason Stop Dose Admin Acetaminophen 650 mg 11/04/18 19:25 11/04/18 19:31 Tylenol 325 Mg PO 11/04/18 19:26 650 mg STAT STA Administration Acetaminophen Confirm 11/04/18 19:30 Tylenol 325 Mg Administered 11/04/18 19:31 Dose 650 mg .ROUTE .STK-MED ONE <MARISSA GARNICA - Last Filed: 11/04/18 18:40> - Progress Progress: unchanged Counseled pt/family regarding: diagnosis, need for follow-up, rad results <ANDREA GREEN - Last Filed: 11/04/18 20:07> - Progress Progress Note: Pt was seen and examined. She has tenderness on the top of foot on L, and tenderness of the L ankle. ROM is limited. XR of ankle and foot were ordered. Pt was signed out to Dr Green. 11/04/18 18:43 (MARISSA GARNICA) 11/04/18 20:02 ADMINISTERED TYLENOL 650MG ORALLY, VELCRO SPLINT AND CRUTCHES (ANDREA GREEN) <MARISSA GARNICA - Last Filed: 11/04/18 18:40> - Departure Departure Disposition: Home Critical Care Time: No <ANDREA GREEN - Last Filed: 11/04/18 20:07> - Departure Clinical Impression: LEFT ANKLE STRAIN, LEFT FOOT STRAIN Condition: Stable Referrals: MARCELO BAINS MD [Primary Care Provider] - Additional Instructions: TYLENOL OR MOTRIN NEEDED FOR PAIN. ELEVATE FOOT AND APPLY ICE OVER FOOT AND ANKLE SWELLING EVERY 4 HOURS, 30 MINUTES FOR 48 HOURS. AMBULATE USING CRUTCHES NONWEIGHT BEARING LEFT FOOT FOR 48 HOURS. CONSULT YOUR PRIMARY CARE PROVIDER FOR FOLLOWUP IN 4-7 DAYS.
[2018-11-04] MEDS ORDERED: TYLENOL 325 MG PO STA (19:25)
[2018-11-04] MEDS ORDERED: TYLENOL 325 MG ONE (19:30)
[2018-11-04 20:18] VITALS: BP 120/76; PULSE 75; O2SAT 100
--- NOTE | 2018-11-05 08:48 | XRAY ---
Indication: Pain following injury. Comparison: None 3 nonweightbearing views of the left foot demonstrates small spurring of the calcaneus and base 5th metatarsal. No other bony, articular, or soft tissue abnormalities.
--- NOTE | 2018-11-05 08:48 | XRAY ---
Indication: Pain following injury. Comparison: October 12, 2007. 3 views of the left ankle demonstrates mild lateral soft tissue swelling with new small heel spur. Stable posterior talus accessory ossicle. No other bony, articular, or soft tissue abnormalities.
== END 2018-11-04 21:09 | disposition home or self-care (01) ==
LOC: ED 17:46
DX: S96.912A Strain of unspecified muscle and tendon at ankle and foot level, left foot, initial encounter (principal); X50.1XXA Overexertion from prolonged static or awkward postures, initial encounter; Y93.9 Activity, unspecified; Y92.29 Other specified public building as the place of occurrence of the external cause; Y99.0 Civilian activity done for income or pay
CPT/HCPCS: 73610; 73630; 99284; A9270-GY

== ENCOUNTER 2019-02-04 15:40 | Emergency (ER) | payer OTHER | END 2019-02-04 19:15 | disposition home or self-care (01) | LOC: ED 15:40 ==

== ENCOUNTER 2019-02-26 06:38 | Day surgery (SDC) | payer MEDICAID, OTHER ==
[2019-02-26] MEDS ORDERED: Lactated Ringers 1,000 ML IV SCH (07:00)
[2019-02-26] MEDS ORDERED: DIPRIVAN 200 MG/20 ML IV ONE (07:53)
[2019-02-26] MEDS ORDERED: Ketamine HCl 50 MG/ML ONE (07:56)
--- NOTE | 2019-02-26 08:41 | OP ---
SURGERY DATE/TIME: 02/26/2019 0804 PREOPERATIVE DIAGNOSES: 1) Epigastric abdominal pain. 2) Gastroesophageal reflux disease. POSTOPERATIVE DIAGNOSIS: Mild gastritis. PROCEDURE: EGD. SURGEON: Jeremy Howard M.D. ANESTHESIA: MAC by Chris Alex CRNA. ESTIMATED BLOOD LOSS: Minimal. SPECIMENS: There are two cold forceps biopsies taken from the gastric antrum. DESCRIPTION OF PROCEDURE: After informed written consent was obtained, the patient was taken to the endoscopy suite. A bite block was inserted and she underwent monitored anesthesia. The endoscope was inserted into the posterior oropharynx and under direct visualization the esophagus was easily traversed. The esophageal mucosa was free of lesions or defects, had a normal appearance. The gastroesophageal junction likewise appeared normal. Upon entry into the gastric cavity there was a normal rugated gastric mucosa free of lesions or defects. In the antrum there were some mild gastritis-type changes. No obvious ulceration, bleeding, etc. The pylorus traversed and the duodenum had a normal mucosal appearance free of any lesion or defects. Prior to withdrawal, two cold forceps biopsies were taken from the gastric antrum and sent for Helicobacter pylori testing. There was minimal bleeding from the biopsy sites. Retroflexion showed no obvious hiatal hernia or other lesions in the superior portion of the stomach. Upon withdrawal again the gastroesophageal junction and esophageal mucosa all appeared unremarkable. The scope was removed and the patient was transferred to the recovery room in good condition. She will follow up in a week for pathology results and continue her proton pump inhibitor and H2 rita regimen.
[2019-02-26 09:21] VITALS: O2SAT 97
[2019-02-26 09:29] VITALS: BP 132/78; PULSE 80
== END 2019-02-26 09:25 | disposition home or self-care (01) ==
LOC: SDC 06:38
PROVIDERS: ATTEND Family Medicine
DX: K29.70 Gastritis, unspecified, without bleeding (principal); K21.9 Gastro-esophageal reflux disease without esophagitis
CPT/HCPCS: 84703; J2704

== ENCOUNTER 2019-03-24 12:00 | Day surgery (SDC) | payer MEDICAID, OTHER ==
--- NOTE | 2019-03-24 09:25 | HP ---
DATE OF SURGERY: 03/24/2019 HISTORY OF PRESENT ILLNESS: The patient is a 29 year-old seen now for some right upper quadrant pain, nausea, vomiting, diarrhea, worse over the past month, worse with any food now. She had section x3 in the past. She denies any jaundice or liver problems. She did have an ultrasound that showed cholelithiasis. They mentioned it was 4 cm on the ultrasound, apparently she had gallstones back in 2009 it sounds like. PAST MEDICAL HISTORY: Anxiety, chronic depression, diabetes, polycystic ovaries and some obesity. PAST SURGICAL HISTORY: Three sections in the past. She had oral surgery in the past. History of anxiety, some diabetes, some reflux. MEDICATIONS: Metformin, Cymbalta, Lyrica, Topamax, vitamin D, omeprazole, dicyclomine, Percocet, Ventolin HFA for chronic obstructive pulmonary disease, vitamin D3. ALLERGIES: MORPHINE. GABAPENTIN. FAMILY HISTORY: Diabetes, heart disease, lung disease. SOCIAL HISTORY: Half pack per day smoker, denies alcohol abuse. REVIEW OF SYSTEMS: Fourteen systems reviewed per admission assessment. No chest pain or palpitations. Other systems negative or noncontributory as above and per preadmission questionnaire. PHYSICAL EXAMINATION: GENERAL: No acute distress. HEENT: Sclerae nonicteric. NECK: No JVD. CHEST: Equal excursion, nonlabored breathing. CVS: Regular rate and rhythm. ABDOMEN: Soft, some tenderness in the right upper quadrant otherwise no peritoneal signs. EXTREMITIES: No significant edema. NEURO: Alert, oriented, moving extremities symmetrically. No gross motor deficits noted. IMPRESSION: Symptomatic cholelithiasis, chronic cholecystitis. I feel the patient will benefit from cholecystectomy. Risks and benefits explained in detail including but not limited to bleeding or infection, risk of trocar injury or hernia, small risk of bowel, bladder or blood vessel injury, small risk of bile leak, bile duct injury, retained stone or sludge possibly requiring further procedure either open or ERCP, general risk of anesthesia, deep venous thrombosis, pulmonary embolism, pneumonia, perioperative risk of aches, pains, bloating, constipation and/or loose stools possibly even chronic in nature. She understands she has had these gallstones for some time and sounds like quite large and may require possibly enlarging epigastric incision to get the gallbladder and stone out and maybe slightly higher increased risk of aches, pains or risk of hernia formation. She understands and agrees to the planned procedure, will proceed with laparoscopic cholecystectomy with possible open as an outpatient.
[~2019-03-24 12:00] MED LIST: Lactated Ringers 1,000 ML IV ONE; Lactated Ringers 1,000 ML IV SCH; MEFOXIN 2 GM PREMIX** 2 GM/50 ML ML IV SCH; Sensorcaine 0.25% 10 ML ONE
[2019-03-24] MEDS ORDERED: MEFOXIN 2 GM PREMIX** 2 GM/50 ML ML IV ONE (12:16)
[2019-03-24] MEDS ORDERED: Lactated Ringers 1,000 ML IV ONE (12:16)
[2019-03-24] MEDS ORDERED: TORAdol 30 mg Injection ONE (14:15)
[2019-03-24] MEDS ORDERED: Decadron 4 MG INJ ONE (14:15)
[2019-03-24] MEDS ORDERED: Zemuron 100 MG/10 ML ONE (14:15)
[2019-03-24] MEDS ORDERED: SUBLIMAZE 250 MCG/5 ML ONE (14:15)
[2019-03-24] MEDS ORDERED: DIPRIVAN 200 MG/20 ML IV ONE (14:15)
[2019-03-24] MEDS ORDERED: Versed 2 MG/2 ML Injection ONE (14:15)
[2019-03-24] MEDS ORDERED: Zofran 4 MG/2 ML VIAL ONE (14:15)
[2019-03-24] MEDS ORDERED: BRIDION 200MG/2ML IV ONE (16:00)
[2019-03-24] MEDS ORDERED: SUBLIMAZE 100 MCG/2 ML ONE (16:13)
[2019-03-24 17:17] VITALS: O2SAT 99
[2019-03-24 17:19] VITALS: BP 107/66; PULSE 76
--- NOTE | 2019-03-25 10:14 | OP ---
SURGERY DATE/TIME: 03/24/2019 1513 PREOPERATIVE DIAGNOSIS: Symptomatic cholelithiasis, chronic cholecystitis. POSTOPERATIVE DIAGNOSIS: Symptomatic cholelithiasis, chronic cholecystitis. PROCEDURE: Laparoscopic cholecystectomy. SURGEON: Dr. Chris Marquis. ANESTHESIA: General. ESTIMATED BLOOD LOSS: Minimal. INDICATIONS: As noted above. Risks and benefits explained in detail but not limited to and consent obtained. DESCRIPTION OF PROCEDURE AND FINDINGS: The patient was taken to the operating room. General anesthesia induced. Abdomen prepped and draped in the usual sterile fashion. After official time out and no disagreement with planned procedure, a transverse incision made at the supraumbilical area. Fascia grasped and pulled upward. Veress needle inserted and tested with saline. Pneumoperitoneum accomplished insufflating opening pressure of 0-15. An 5 mm bladeless port and camera inserted without difficulty followed by two - 5 mm right upper quadrant ports and 11 mm epigastric port as she had quite large stones. The gallbladder grasped retracted over the edge of the liver. Dissection carried posterior, lateral to anterior fashion. Slowly and carefully the main cystic artery, cystic duct and infundibular area slowly and carefully well skeletonized until the critical view obtained both anteriorly and posteriorly. Once this was accomplished the cystic duct and cystic artery clipped x3 and divided in usual fashion. Gallbladder slowly and carefully dissected free from its dense attachments to the liver bed clipping additional side branches off the cystic artery as necessary directly on the gallbladder wall. She had quite a bit of chronic inflammation as she has had gallbladder problems for years and had a 4 cm stone on the recent study. Dissecting the gallbladder out one of the graspers tore a small pinhole in the gallbladder. There was no gross stone spillage just a small amount of bile this is suctioned and irrigated as clear as possible. The gallbladder dissected free from the liver bed staying directly on the gallbladder wall. Just prior to releasing from final attachments to the anterior edge of the liver, the liver bed re-inspected. Clips noted in place cystic duct and cystic artery stumps. There were no signs of any active bleeding or bile leakage from the liver bed itself. Clips noted in place in cystic duct and cystic artery stumps. Gallbladder released from final attachments to anterior edge of the liver and placed in EndoCatch bag or whatever bag was available at this hospital, pulled up into the epigastric wound. The fascia is spread slightly with a clamp allowing the gallbladder and bag to be pulled free and passed off. Copious amount of irrigation accomplished lateral to the liver and subhepatic space irrigating until clear. Liver bed re-inspected. Clips noted in place in cystic duct and cystic artery stumps. There was no sign of any active bleeding or bile leakage. It was felt there was no benefit in drain placement. Irrigation clear. The fascial defect 11 mm site had been slightly enlarged with a clamp and this is closed with figure-of-8 #1 Vicryl. Pneumoperitoneum decompressed. The wound was irrigated out. Skin incision closed with 4-0 Vicryl. Steri-Strips and sterile dressing applied. 0.25% Marcaine local injected along the skin incision fascial defect at the beginning of the procedure. There were no immediate complications. Findings discussed with the family out in the waiting area.
== END 2019-03-24 17:23 | disposition home or self-care (01) ==
LOC: SDC 12:00
PROVIDERS: ATTEND Surgery
DX: K80.10 Calculus of gallbladder with chronic cholecystitis without obstruction (principal); E11.9 Type 2 diabetes mellitus without complications; J44.9 Chronic obstructive pulmonary disease, unspecified; Z79.899 Other long term (current) drug therapy
CPT/HCPCS: 82962; 84703; J0694; J1100; J1885; J2250; J2405; J2704; J3010

== ENCOUNTER 2019-07-09 13:37 | Day surgery (SDC) | payer OTHER ==
[2012-04-04 00:37] VITALS: BP 128/80
[2019-07-09] MEDS ORDERED: Depo-Medrol 40 MG/ML IM ONE (13:38)
[2019-07-09] MEDS ORDERED: Marcaine 0.5% SDV 10 ML IJ ONE (13:38)
[2019-07-09] MEDS ORDERED: DIPRIVAN 200 MG/20 ML IV ONE (14:44)
[2019-07-09] MEDS ORDERED: Ketamine HCl 50 MG/ML ONE (14:44)
[2019-07-09] MEDS ORDERED: Lactated Ringers 1,000 ML IV ONE (15:32)
--- NOTE | 2019-07-09 16:32 | XRAY ---
17 seconds fluoroscopy time in surgery for bilateral SI joint injections.
--- NOTE | 2019-07-09 16:42 | XRAY ---
Indication: Bilateral SI joint injection. Intraoperative fluoroscopy was provided for 17 seconds. 4 digital spot images submitted for interpretation demonstrates posterior needle tip projecting over the inferior left and right SI joints. Correlate with intraoperative findings/report.
== END 2019-07-09 15:12 | disposition home or self-care (01) ==
LOC: SDC-PAIN 13:37
PROVIDERS: ATTEND Psychiatry & Neurology Pain Medicine
DX: M46.1 Sacroiliitis, not elsewhere classified (principal); M47.817 Spondylosis without myelopathy or radiculopathy, lumbosacral region; J45.909 Unspecified asthma, uncomplicated; K21.9 Gastro-esophageal reflux disease without esophagitis; Z79.899 Other long term (current) drug therapy
CPT/HCPCS: 72202; 77002; 84703; G0260; 27096; J1030; J2704

== ENCOUNTER 2020-03-10 11:52 | Day surgery (SDC) | payer OTHER ==
[2012-04-04 00:37] VITALS: BP 128/80
[~2020-03-10 11:52] MED LIST changes: +DIPRIVAN 200 MG/20 ML IV ONE; +Ketamine HCl 50 MG/ML ONE; -Lactated Ringers 1,000 ML IV ONE; -Lactated Ringers 1,000 ML IV SCH; -MEFOXIN 2 GM PREMIX** 2 GM/50 ML ML IV SCH; -Sensorcaine 0.25% 10 ML ONE
[2020-03-10] MEDS ORDERED: BUPIVACAINE 0.5% VIAL IJ ONE (11:53)
[2020-03-10] MEDS ORDERED: Depo-Medrol 40 MG/ML IM ONE (11:53)
[2020-03-10] MEDS ORDERED: Lactated Ringers 1,000 ML IV ONE (15:51)
--- NOTE | 2020-03-10 16:24 | XRAY ---
Indication: Bilateral SI joint injection. Intraoperative fluoroscopy was provided for 14 seconds. 4 digital spot images submitted for interpretation demonstrates posterior needle tip projecting over the inferior left and right SI joints. Correlate with intraoperative findings/report.
--- NOTE | 2020-03-10 16:28 | XRAY ---
14 seconds fluoroscopy time in surgery for bilateral SI joint injections.
== END 2020-03-10 14:05 | disposition home or self-care (01) ==
LOC: SDC-PAIN 11:52
PROVIDERS: ATTEND Psychiatry & Neurology Pain Medicine
DX: M47.816 Spondylosis without myelopathy or radiculopathy, lumbar region (principal); K21.9 Gastro-esophageal reflux disease without esophagitis; E28.2 Polycystic ovarian syndrome; Z79.899 Other long term (current) drug therapy
CPT/HCPCS: 72202; 77002; 84703; J1030; J2704

== ENCOUNTER 2020-05-05 11:08 | Day surgery (SDC) | payer OTHER ==
[2012-04-04 00:37] VITALS: BP 128/80
[2020-05-05] MEDS ORDERED: BUPIVACAINE 0.5% VIAL IJ ONE (11:09)
[2020-05-05] MEDS ORDERED: Depo-Medrol 40 MG/ML IM ONE (11:09)
[2020-05-05] MEDS ORDERED: Xylocaine 1% Vial 30 ML PF IJ ONE (11:09)
[2020-05-05] MEDS ORDERED: Ketamine HCl 50 MG/ML ONE (12:15)
[2020-05-05] MEDS ORDERED: DIPRIVAN 200 MG/20 ML IV ONE (12:15)
--- NOTE | 2020-05-05 13:41 | XRAY ---
Indication: Bilateral L4-S1 MBB. Intraoperative fluoroscopy was provided for 16 seconds. Single digital spot image submitted for interpretation demonstrate posterior needle tips projecting over the expected left and right L4-S1 nerve roots. Correlate with intraoperative findings/report.
--- NOTE | 2020-05-05 13:46 | XRAY ---
16 seconds fluoroscopy time in surgery for bilateral L4-S1 MBB.
[2020-05-05] MEDS ORDERED: Lactated Ringers 1,000 ML IV ONE (15:15)
== END 2020-05-05 12:45 | disposition home or self-care (01) ==
LOC: SDC-PAIN 11:08
PROVIDERS: ATTEND Psychiatry & Neurology Pain Medicine
DX: M47.816 Spondylosis without myelopathy or radiculopathy, lumbar region (principal); I10 Essential (primary) hypertension; Z79.899 Other long term (current) drug therapy; K21.9 Gastro-esophageal reflux disease without esophagitis; J45.909 Unspecified asthma, uncomplicated
CPT/HCPCS: 64493; 64494; 72020; 77002; 84703; J1030; J2001; J2704

== ENCOUNTER 2020-10-10 16:41 | Emergency (ER) | payer OTHER ==
[2020-10-10 16:54] VITALS: BP 131/84; O2SAT 98
[2020-10-10 17:14] LABS: Absolute Neutrophil Ct (ANC) 3.95 (1.4-6.9); BASOPHIL % 0.3 % (0.0-0.4); Basophil (Absolute #) 0.02 (0-0.4); Eosinophil % 1.6 % (0.00-5.0); Hematocrit 41.4 % (35-47); Lymphocyte (Absolute #) 1.91 (1.0-4.6); Lymphocytes % 29.8 % (24.0-44.0); Mean Cell Volume 94.5 fl (78-100); Mean Corpuscular Hemoglobin 29.7 pg (26-32); Mean Corpuscular Hgb Concent. 31.4 g/dl (32-36); Mean Platelet Volume 10.3 fl (7.5-11.0); Monocyte (Absolute #) 0.43 (0.0-1.3); Monocytes % 6.7 % (0.0-12.0); Neutrophil % 61.6 % (36.0-66.0); Platelet Count 295 K/mm3 (150-450); Red Blood Count 4.38 M/mm3 (4.1-5.4); Red Cell Distribution Width 14.7 % (11.5-14.0); White Blood Count 6.4 K/mm3 (4.0-10.5)
[2020-10-10 17:26] LABS: ALBUMIN 4.2 g/dL (3.5-5.0); ALKALINE PHOSPHATASE 73 U/L (38-126); ANION GAP 13.5 MEQ/L (5-15); BLOOD UREA NITROGEN 15 mg/dL (7-17); CHLORIDE 111 mmol/L (98-107); Calcium 9.4 mg/dL (8.4-10.2); Carbon Dioxide 19 mmol/L (22-30); Creatinine 1 0.86 mg/dL (0.52-1.04); EST GLOMERULAR FILTRATION RATE > 60.0 ML/MIN; Glucose 94 mg/dL (74-106); Potassium 3.9 mmol/L (3.5-5.1); SGOT/AST 36 U/L (14-36); SGPT/ALT 38 U/L (0-35); SODIUM 140 mmol/L (137-145); Total Protein 7.6 g/dL (6.3-8.2)
--- NOTE | 2020-10-10 18:23 | ERPHSYRPT ---
- History of Present Illness Time Seen by Provider: 10/10/20 17:00 Source: patient Exam Limitations: no limitations Patient Subjective Stated Complaint: Pt states that she woke up dizzy today and has had numbness and tingling in her aust[place] hands and arms that radiates to her mid upper arm Triage Nursing Assessment: Pt was brought to the ER by her , vitals wnl, denies any new pain, denies injury, states the dizziness comes and goes, pulses normal, skin n/w/d, doesn't appear to be in any distress Physician History: 30-year-old white female who presents by private vehicle with complaint of dizziness and numbness in both upper extremities all the way from her fingers to her mid upper arms. She reportedly has a spine which has some sort of abnormality and she also has a history of peripheral neuropathy in the left lower extremity she does describe the dizziness as a vertigo. Timing/Duration: day(s) (3) Severity: mild Modifying Factors: Improves With: nothing Allergies/Adverse Reactions: gabapentin Allergy (Severe, Verified 10/10/20 16:54) Swelling breakout swelling morphine Allergy (Severe, Verified 10/10/20 16:54) Vomiting breakout,vomiting Home Medications: Duloxetine HCl 30 mg [Cymbalta 30 MG Capsule] 30 mg PO DAILY 11/16/16 [History] Ergocalciferol (Vitamin D2) [Vitamin D] 50,000 unit PO .2XWEEKLY 11/16/16 [History] Metformin HCl 500 mg [Glucophage 500 MG] 1,000 mg PO BID 11/16/16 [History] Omeprazole 20 MG [Prilosec 20 mg] 40 mg PO DAILY 08/07/17 [History] Pregabalin [Lyrica 150Mg] 150 mg PO BID 08/13/17 [History] Topiramate 100 mg [Topamax 100 MG] 50 mg PO BID 10/29/17 [History] Albuterol 8 gm Mdi Hfa [Ventolin Hfa MDI] 1 dose IH DAILY PRN 02/18/19 [History] Folic Acid/Vitamin B Comp W-C* [Foltx (Folbic)] 1 tab PO DAILY 10/10/20 [History] Hydrocodone/Acetaminophen [Hydrocodone-Acetamin 10-325 mg^^^] 1 tab PO Q6H PRN 10/10/20 [History] Iron Polysaccharides Complex [Ferrex 150] 150 mg PO BID 10/10/20 [History] Hx Tetanus, Diphtheria Vaccination/Date Given: No Hx Influenza Vaccination/Date Given: No Hx Pneumococcal Vaccination/Date Given: No Travel Risk - International Travel Have you traveled outside of the country in past 3 weeks: No - Coronavirus Screening Are you exhibiting any of the following symptoms?: No Close contact with a COVID-19 positive Pt in past 14-21 Days: No - Vaccine Status Have you recieved a Covid-19 vaccination: No - Review of Systems Constitutional: No Fever, No Chills Eyes: No Symptoms Ears, Nose, & Throat: No Symptoms Respiratory: No Cough, No Dyspnea Cardiac: No Chest Pain, No Edema, No Syncope Abdominal/Gastrointestinal: No Abdominal Pain, No Nausea, No Vomiting, No Diarrhea Genitourinary Symptoms: No Dysuria Musculoskeletal: No Back Pain, No Neck Pain Skin: Other (Paresthesia of both upper extremities purely subjective), No Rash Neurological: Dizziness, Other (Ago), No Focal Weakness, No Sensory Changes (Paresthesias upper extremities) Psychological: No Symptoms Endocrine: No Symptoms All Other Systems: Reviewed and Negative - Past Medical History Pertinent Past Medical History: Yes Neurological History: Peripheral Neuropathy ENT History: No Pertinent History Cardiac History: No Pertinent History Respiratory History: No Pertinent History Endocrine Medical History: No Pertinent History Musculoskeletal History: Other GI Medical History: GERD, Gallbladder Disease, Other History: No Pertinent History Psycho-Social History: Depression Female Reproductive Disorders: No Pertinent History Other Medical History: PCOS,chronic back pain-spondolosis/arthritis , only has one kidney, bruises easily, gall stones, - Past Surgical History Past Surgical History: Yes Neuro Surgical History: No Pertinent History Cardiac: No Pertinent History Respiratory: No Pertinent History Gastrointestinal: Cholecystectomy Genitourinary: No Pertinent History Musculoskeletal: No Pertinent History Female Surgical History: Section Other Surgical History: oral surgery, 3 c-sections,back steroid inj - Social History Smoking Status: Current every day smoker How long have you smoked: 10 Exposure to second hand smoke: Yes Drug Use: none Patient Lives Alone: No - Female History Hx Last Menstrual Period: 08/12/2020 Hx Now: No - Nursing Vital Signs Nursing Vital Signs: Initial Vital Signs Temperature 98.6 F 10/10/20 16:44 Pulse Rate 95 H 10/10/20 16:44 Blood Pressure 131/84 10/10/20 16:44 O2 Sat by Pulse Oximetry 98 10/10/20 16:44 Pain Scale Pain Intensity 0 - Physical Exam General Appearance: mild distress, alert Eye Exam: PERRL/EOMI, eyes nml inspection Ears, Nose, Throat Exam: normal ENT inspection, pharynx normal, moist mucous membranes, other (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.) Neck Exam: normal inspection, non-tender, supple, full range of motion Respiratory Exam: normal breath sounds, lungs clear, No respiratory distress Cardiovascular Exam: regular rate/rhythm, normal heart sounds, normal peripheral pulses Gastrointestinal/Abdomen Exam: soft, normal bowel sounds, No tenderness, No mass Back Exam: normal inspection, normal range of motion, No CVA tenderness, No vertebral tenderness Extremity Exam: normal inspection, normal range of motion, pelvis stable Neurologic Exam: alert, oriented x 3, cooperative, normal mood/affect, nml cerebellar function, nml station & gait, sensation nml, No motor deficits Skin Exam: normal color, warm, dry, No rash Lymphatic Exam: No adenopathy SpO2: 98 - Course Nursing assessment & vital signs reviewed: Yes EKG Interpreted by Me: RATE (79), Sinus Rhythm, NORMAL AXIS, NORMAL INTERVALS, NORMAL QRS - CT Exams Head CT Interpretation: Tele-radiologist Report Ordered Tests: Active Orders 24 hr Category Date Time Status EKG-ER Only STAT Care 10/10/20 16:53 Active CERVICAL SPINE WO CONTRAST [CT] Stat Exams 10/10/20 17:48 Taken HEAD WITHOUT CONTRAST [CT] Stat Exams 10/10/20 17:44 Taken CBC W DIFF Stat Lab 10/10/20 17:10 Completed CMP Stat Lab 10/10/20 17:10 Completed HCG QUALITATIVE,SERUM Stat Lab 10/10/20 17:10 Completed Lactic Acid Stat Lab 10/10/20 17:05 Completed TROPONIN Q3H Lab 10/10/20 17:10 Completed TROPONIN Q3H Lab 10/10/20 20:00 Ordered TROPONIN Q3H Lab 10/10/20 23:00 Ordered TROPONIN Q3H Lab 10/11/20 02:00 Ordered TROPONIN Q3H Lab 10/11/20 05:00 Ordered UA W/RFX UR CULTURE Stat Lab 10/10/20 16:51 Ordered Lab/Rad Data: Laboratory Result Diagrams 10/10/20 17:10 10/10/20 17:10 Laboratory Results 10/10/20 10/10/20 10/10/20 Range/Units 17:10 17:10 17:10 WBC (4.0-10.5) K/mm3 RBC (4.1-5.4) M/mm3 Hgb (12.0-16.0) gm/dl Hct (35-47) % MCV (78-100) fl MCH (26-32) pg MCHC (32-36) g/dl RDW (11.5-14.0) % Plt Count (150-450) K/mm3 MPV (7.5-11.0) fl Gran % (36.0-66.0) % Eos # (Auto) (0-0.5) Absolute Lymphs (auto) (1.0-4.6) Absolute Monos (auto) (0.0-1.3) Lymphocytes % (24.0-44.0) % Monocytes % (0.0-12.0) % Eosinophils % (0.00-5.0) % Basophils % (0.0-0.4) % Absolute Granulocytes (1.4-6.9) Basophils # (0-0.4) Sodium 140 (137-145) mmol/L Potassium 3.9 (3.5-5.1) mmol/L Chloride 111 H (98-107) mmol/L Carbon Dioxide 19 L (22-30) mmol/L Anion Gap 13.5 (5-15) MEQ/L BUN 15 (7-17) mg/dL Creatinine 0.86 (0.52-1.04) mg/dL Estimated GFR > 60.0 ML/MIN Glucose 94 (74-106) mg/dL Lactic Acid (0.4-2.0) Calcium 9.4 (8.4-10.2) mg/dL Total Bilirubin 0.30 (0.2-1.3) mg/dL AST 36 (14-36) U/L ALT 38 H (0-35) U/L Alkaline Phosphatase 73 (38-126) U/L Troponin I < 0.012 (0.000-0.034) ng/mL Serum Total Protein 7.6 (6.3-8.2) g/dL Albumin 4.2 (3.5-5.0) g/dL Serum , Qual NEGATIVE (Negative) 10/10/20 10/10/20 Range/Units 17:10 17:05 WBC 6.4 (4.0-10.5) K/mm3 RBC 4.38 (4.1-5.4) M/mm3 Hgb 13.0 (12.0-16.0) gm/dl Hct 41.4 (35-47) % MCV 94.5 (78-100) fl MCH 29.7 (26-32) pg MCHC 31.4 L (32-36) g/dl RDW 14.7 H (11.5-14.0) % Plt Count 295 (150-450) K/mm3 MPV 10.3 (7.5-11.0) fl Gran % 61.6 (36.0-66.0) % Eos # (Auto) 0.10 (0-0.5) Absolute Lymphs (auto) 1.91 (1.0-4.6) Absolute Monos (auto) 0.43 (0.0-1.3) Lymphocytes % 29.8 (24.0-44.0) % Monocytes % 6.7 (0.0-12.0) % Eosinophils % 1.6 (0.00-5.0) % Basophils % 0.3 (0.0-0.4) % Absolute Granulocytes 3.95 (1.4-6.9) Basophils # 0.02 (0-0.4) Sodium (137-145) mmol/L Potassium (3.5-5.1) mmol/L Chloride (98-107) mmol/L Carbon Dioxide (22-30) mmol/L Anion Gap (5-15) MEQ/L BUN (7-17) mg/dL Creatinine (0.52-1.04) mg/dL Estimated GFR ML/MIN Glucose (74-106) mg/dL Lactic Acid 1.2 (0.4-2.0) Calcium (8.4-10.2) mg/dL Total Bilirubin (0.2-1.3) mg/dL AST (14-36) U/L ALT (0-35) U/L Alkaline Phosphatase (38-126) U/L Troponin I (0.000-0.034) ng/mL Serum Total Protein (6.3-8.2) g/dL Albumin (3.5-5.0) g/dL Serum , Qual (Negative) - Progress Progress: unchanged - Departure Departure Disposition: Home Clinical Impression: Left otitis media, Paresthesia of upper extremity, Vertigo Condition: Stable Critical Care Time: No Referrals: MARCELO BAINS MD [Primary Care Provider] - Instructions: Vertigo (a Type of Dizziness) (DC) Prescriptions: Amoxicillin 500 mg PO TID 10 Days #30 tablet
[2020-10-10 18:35] LABS: Appearance SLIGHTLY CLOUDY (CLEAR); Bacteria NONE SEEN /HPF (NEGATIVE); Bilirubin SMALL (NEGATIVE); Blood SMALL Ery/ul (0-5); Epithelial Cells RARE /HPF (FEW); Glucose NEGATIVE (NEGATIVE); Ketones NEGATIVE (NEGATIVE); Leukocyte Esterase MODERATE (NEGATIVE); Mucus SLIGHT /HPF (NEGATIVE); Nitrite NEGATIVE (NEGATIVE); Protein,Urine Dip 30 (Negative); Specific Gravity 1.038 (1.005-1.025); Urobilinogen NEGATIVE mg/dL (0-1)
[2020-10-10 18:39] VITALS: PULSE 86
--- NOTE | 2020-10-11 08:52 | XRAY ---
Indication: Headache and dizziness. History of migraines. Multiple contiguous axial images obtained through the head without contrast. Comparison: None Normal appearing brain parenchyma, ventricles, and bony calvarium. Visualized paranasal sinuses and mastoid air cells are clear. Impression: Normal CT head without contrast exam. Comment: Preliminary interpretation was made by [facility]. No critical discrepancy.
--- NOTE | 2020-10-11 08:54 | XRAY ---
Indication: Bilateral hand numbness. Headache and dizziness. History of migraines. Multiple contiguous axial images obtained through the cervical spine. Sagittal and coronal reformatted images obtained. Comparison: None Axial images negative for acute fracture, suspicious bony lesions, or spinal canal stenosis. Sagittal and coronal reformatted images demonstrates lordotic straightening, positional versus paraspinal spasm. Vertebral body heights/disc spaces maintained. No acute compression fracture, subluxation, or jumped facet. Normal appearing craniocervical junction. Visualized noncontrasted soft tissues including lung apices are unremarkable. Impression: Cervical lordotic straightening, positional versus paraspinal spasm. Remaining CT cervical spine is negative. Comment: Preliminary interpretation was made by C. No critical discrepancy.
== END 2020-10-10 18:35 | disposition home or self-care (01) ==
LOC: ED 16:41
DX: H66.92 Otitis media, unspecified, left ear (principal); R20.2 Paresthesia of skin; R42 Dizziness and giddiness
CPT/HCPCS: 36415; 70450; 72125; 80053; 81001; 81025; 83605; 84484; 85025; 87086; 99284

== ENCOUNTER 2020-12-08 12:40 | Day surgery (SDC) | payer OTHER ==
[2012-04-04 00:37] VITALS: BP 128/80
[2020-12-08] MEDS ORDERED: BUPIVACAINE 0.5% VIAL IJ ONE (12:41)
[2020-12-08] MEDS ORDERED: Xylocaine 1% Vial 30 ML PF IJ ONE (12:41)
[2020-12-08] MEDS ORDERED: Depo-Medrol 40 MG/ML IM ONE (12:41)
[2020-12-08 13:22] LABS: Absolute Neutrophil Ct (ANC) 2.25 (1.4-6.9); BASOPHIL % 0.2 % (0.0-0.4); Basophil (Absolute #) 0.01 (0-0.4); Eosinophil (Absolute #) 0.09 (0-0.5); Hematocrit 41.5 % (35-47); Hemoglobin 12.7 gm/dl (12.0-16.0); Lymphocyte (Absolute #) 1.83 (1.0-4.6); Lymphocytes % 40.9 % (24.0-44.0); Mean Cell Volume 95.2 fl (78-100); Mean Corpuscular Hemoglobin 29.1 pg (26-32); Mean Corpuscular Hgb Concent. 30.6 g/dl (32-36); Mean Platelet Volume 10.2 fl (7.5-11.0); Monocyte (Absolute #) 0.29 (0.0-1.3); Monocytes % 6.5 % (0.0-12.0); Neutrophil % 50.4 % (36.0-66.0); Platelet Count 287 K/mm3 (150-450); Red Blood Count 4.36 M/mm3 (4.1-5.4); Red Cell Distribution Width 14.6 % (11.5-14.0); White Blood Count 4.5 K/mm3 (4.0-10.5)
[2020-12-08] MEDS ORDERED: DIPRIVAN 200 MG/20 ML IV ONE (14:04)
[2020-12-08 14:30] LABS: ALKALINE PHOSPHATASE 65 U/L (38-126); ANION GAP 12.7 MEQ/L (5-15); BLOOD UREA NITROGEN 13 mg/dL (7-17); CHLORIDE 109 mmol/L (98-107); Calcium 9.4 mg/dL (8.4-10.2); Carbon Dioxide 22 mmol/L (22-30); Cholesterol 181 mg/dL (50-200); Creatinine 1 0.88 mg/dL (0.52-1.04); EST GLOMERULAR FILTRATION RATE > 60.0 ML/MIN; Glucose 83 mg/dL (74-106); HDL CHOLESTEROL 40 mg/dL (40-60); LDL, DIRECT 106 mg/dL (30-100); Potassium 4.4 mmol/L (3.5-5.1); Risk Ratio 4.5; SGOT/AST 25 U/L (14-36); SGPT/ALT 21 U/L (0-35); SODIUM 139 mmol/L (137-145); TRIGLYCERIDE 96 mg/dL (30-150); TSH, 3RD Generation 0.922 mIU/L (0.47-4.68); Total Protein 7.4 g/dL (6.3-8.2)
[2020-12-08] MEDS ORDERED: Lactated Ringers 1,000 ML IV ONE (16:04)
--- NOTE | 2020-12-08 16:57 | XRAY ---
Indication: Left L4-S1 RFA. Intraoperative fluoroscopy provided for 23 seconds. 2 digital spot image submitted for interpretation demonstrate posterior needle tips projecting over the expected left L4-S1 nerve roots. Correlate with intraoperative findings/report.
--- NOTE | 2020-12-08 17:04 | XRAY ---
23 seconds of fluoroscopy was used in surgery for a right L4-L5, L5-S1 RFA.
== END 2020-12-08 14:30 | disposition home or self-care (01) ==
LOC: SDC-PAIN 12:40
PROVIDERS: ATTEND Psychiatry & Neurology Pain Medicine
DX: M47.816 Spondylosis without myelopathy or radiculopathy, lumbar region (principal); K21.9 Gastro-esophageal reflux disease without esophagitis; I10 Essential (primary) hypertension; M19.90 Unspecified osteoarthritis, unspecified site; J45.909 Unspecified asthma, uncomplicated; E28.2 Polycystic ovarian syndrome; Z79.899 Other long term (current) drug therapy
CPT/HCPCS: 36415; 64635; 64636; 72100; 77002; 80053; 80061; 81025; 83036; 83721; 84443; 85025; J1030; J2001; J2704

== ENCOUNTER 2021-03-02 13:09 | Day surgery (SDC) | payer OTHER ==
[2012-04-04 00:37] VITALS: BP 128/80
[2021-03-02] MEDS ORDERED: Depo-Medrol 40 MG/ML IM ONE (13:10)
[2021-03-02] MEDS ORDERED: Xylocaine 1% Vial 30 ML PF IJ ONE (13:10)
[2021-03-02] MEDS ORDERED: BUPIVACAINE 0.5% VIAL IJ ONE (13:10)
[2021-03-02] MEDS ORDERED: Decadron 4 MG INJ IV ONE (13:10)
[2021-03-02] MEDS ORDERED: Lactated Ringers 1,000 ML IV ONE (13:18)
--- NOTE | 2021-03-02 16:09 | XRAY ---
Indication: Right L4-S1 RFA. Intraoperative fluoroscopy provided for 26 seconds. 3 digital spot images submitted for interpretation demonstrates posterior needle tips projecting over the expected right L4-S1 nerve roots. Correlate with intraoperative findings/report.
--- NOTE | 2021-03-02 16:38 | XRAY ---
26 seconds of fluoroscopy was used in surgery for a right L4-S1 RFA.
== END 2021-03-02 14:17 | disposition home or self-care (01) ==
LOC: SDC-PAIN 13:09
PROVIDERS: ATTEND Psychiatry & Neurology Pain Medicine
DX: M47.816 Spondylosis without myelopathy or radiculopathy, lumbar region (principal); Z79.899 Other long term (current) drug therapy
CPT/HCPCS: 64635; 64636; 72100; 77002; 84703; J1030; J1100; J2001

== ENCOUNTER 2021-04-06 19:38 | Emergency (ER) | payer OTHER ==
[2021-04-06] MEDS ORDERED: Rocephin 1000 MG INJ IM ONE (20:16)
[2021-04-06] MEDS ORDERED: TORAdol 30 mg Injection IM ONE (20:16)
[2021-04-06] MEDS ORDERED: Rocephin 1000 MG INJ ONE (20:17)
[2021-04-06] MEDS ORDERED: TORAdol 30 mg Injection ONE (20:17)
[2021-04-06] MEDS ORDERED: XYLOCAINE 1% HCL 20 ML MDV ONE (20:17)
--- NOTE | 2021-04-06 20:40 | ERPHSYRPT ---
- History of Present Illness Time Seen by Provider: 04/06/21 19:46 Source: patient Exam Limitations: no limitations Patient Subjective Stated Complaint: Patient states " I have an earache in left ear that I have taken Amoxil and it wasn't getting better so called back PCP and then started on Cefdinir 300mg BID and my ear still continues to hurt." Triage Nursing Assessment: Patient arrived to ED and ambulated back to room with steady gait and without difficulties. Patient A/O times 4. Patient able to follow instructions without difficulty. Patient with complaints of left ear pain. Upon visual inspection left ear red in color. Patient denies any drainage from ear. Patient states she has some episodes of dizziness. Patient denies any N/V. Patient states pain in left ear does radiate into head. Bilateral hand pyrotechnist strong and equal. Bilateral pupils brisk and reactive. Neuro checks WNL. No abcess or blisters noted inside gums or dental concerns. Patient denies any nasal drainage or cough. Patient denies fever. Patient afebrile Physician History: 31 years old female presented in ER with chief complaint of left earache for the last 3 to 4 weeks. She has been evaluated outpatient and finished course of amoxicillin, currently on Omnicef but still having pain and heaviness in the left ear. Pain is moderate to severe sharp nature radiating to left face. No fever or chills reported. Denies any ear discharge. Because of ear infections sometimes feel dizzy and headache. Timing/Duration: weeks (4) Severity: moderate ENT Location: ear (L) Prearrival Treatment: prescription meds Associated Symptoms: ear pain (L), facial pain/swelling, nasal congestion/drainage Allergies/Adverse Reactions: gabapentin Allergy (Severe, Verified 04/06/21 19:50) Swelling breakout swelling morphine Allergy (Severe, Verified 04/06/21 19:50) Vomiting breakout,vomiting Home Medications: Duloxetine HCl 30 mg [Cymbalta 30 MG Capsule] 30 mg PO DAILY 11/16/16 [History] Ergocalciferol (Vitamin D2) [Vitamin D] 50,000 unit PO .2XWEEKLY 11/16/16 [History] Metformin HCl 500 mg [Glucophage 500 MG] 1,000 mg PO BID 11/16/16 [History] Omeprazole 20 MG [Prilosec 20 mg] 40 mg PO DAILY 08/07/17 [History] Pregabalin [Lyrica 150Mg] 150 mg PO BID 08/13/17 [History] Topiramate 100 mg [Topamax 100 MG] 50 mg PO BID 10/29/17 [History] Albuterol 8 gm Mdi Hfa [Ventolin Hfa MDI] 1 dose IH DAILY PRN 02/18/19 [History] Folic Acid/Vitamin B Comp W-C* [Foltx (Folbic)] 1 tab PO DAILY 10/10/20 [History] Hydrocodone/Acetaminophen [Hydrocodone-Acetamin 10-325 mg^^^] 1 tab PO Q6H PRN 10/10/20 [History] Iron Polysaccharides Complex [Ferrex 150] 150 mg PO BID 10/10/20 [History] Hx Tetanus, Diphtheria Vaccination/Date Given: No Hx Influenza Vaccination/Date Given: No Hx Pneumococcal Vaccination/Date Given: No Immunizations Up to Date: Yes Travel Risk - International Travel Have you traveled outside of the country in past 3 weeks: No - Coronavirus Screening Are you exhibiting any of the following symptoms?: No Close contact with a COVID-19 positive Pt in past 14-21 Days: No - Vaccine Status Have you recieved a Covid-19 vaccination: No - Review of Systems Constitutional: No Symptoms Eyes: No Symptoms Ears, Nose, & Throat: Ear Pain, Hearing Changes, Nose Congestion Respiratory: No Symptoms Cardiac: No Symptoms Abdominal/Gastrointestinal: No Symptoms Musculoskeletal: No Symptoms Skin: No Symptoms Neurological: Dizziness Psychological: No Symptoms Endocrine: No Symptoms Hematologic/Lymphatic: No Symptoms - Past Medical History Pertinent Past Medical History: Yes Neurological History: Peripheral Neuropathy ENT History: No Pertinent History Cardiac History: No Pertinent History Respiratory History: No Pertinent History Endocrine Medical History: No Pertinent History Musculoskeletal History: Other GI Medical History: GERD, Gallbladder Disease, Other History: No Pertinent History Psycho-Social History: Depression Female Reproductive Disorders: No Pertinent History Other Medical History: PCOS,chronic back pain-spondolosis/arthritis , only has one kidney, bruises easily - Past Surgical History Past Surgical History: Yes Neuro Surgical History: No Pertinent History Cardiac: No Pertinent History Respiratory: No Pertinent History Gastrointestinal: Cholecystectomy Genitourinary: No Pertinent History Musculoskeletal: No Pertinent History Female Surgical History: Section Other Surgical History: oral surgery, 3 c-sections,back steroid inj - Social History Smoking Status: Current every day smoker How long have you smoked: 10 years Exposure to second hand smoke: Yes Drug Use: none Patient Lives Alone: No - Female History Hx Last Menstrual Period: 04/01/21 Hx Now: No - Nursing Vital Signs Nursing Vital Signs: Initial Vital Signs Temperature 97.8 F 04/06/21 19:48 Pulse Rate 101 H 04/06/21 19:48 Respiratory Rate 20 04/06/21 19:48 Blood Pressure 119/63 04/06/21 19:48 O2 Sat by Pulse Oximetry 97 04/06/21 19:48 Pain Scale Pain Intensity 9 - Physical Exam General Appearance: no apparent distress, alert, anxiety Eye Exam: bilateral eye: normal inspection, PERRL, EOMI Ear Exam: right ear: TM normal, left ear: TM bulging, bilateral ear: auricle normal, canal normal, other (No mastoid tenderness bilateral) Nasal Exam: normal inspection Throat Exam: normal, pharynx normal Neck Exam: normal inspection, non-tender, supple, full range of motion, trachea midline, No meningismus Cardiovascular/Respiratory Exam: normal breath sounds, regular rate/rhythm Neurologic Exam: alert, oriented x 3, cooperative, human resources operations director II-XII nml as tested, nml cerebellar function, nml station & gait, sensation nml, No normal mood/affect (Anxious), No motor deficits Skin Exam: normal color SpO2 Interpretation: normal SpO2: 97 O2 Delivery: Room Air Ordered Tests: Medication Summary Discontinued Medications Generic Name Dose Route Start Last Admin Trade Name Irma PRN Reason Stop Dose Admin Ceftriaxone Sodium 1,000 mg 04/06/21 20:16 04/06/21 20:21 Ceftriaxone Sodium 1000 Mg Inj Vial IM 04/06/21 20:17 1,000 mg STAT ONE Administration Ceftriaxone Sodium Confirm 04/06/21 20:17 Ceftriaxone Sodium 1000 Mg Inj Vial Administered 04/06/21 20:18 Dose 1,000 mg .ROUTE .STK-MED ONE Ketorolac Tromethamine 30 mg 04/06/21 20:16 04/06/21 20:21 Ketorolac Tromethamine 30 Mg/Ml Inj IM 04/06/21 20:17 30 mg STAT ONE Administration Ketorolac Tromethamine Confirm 04/06/21 20:17 Ketorolac Tromethamine 30 Mg/Ml Inj Administered 04/06/21 20:18 Dose 30 mg .ROUTE .STK-MED ONE Lidocaine HCl Confirm 04/06/21 20:17 Lidocaine Hcl 1% 20 Ml Mdv 20 Ml Ml Administered 04/06/21 20:18 Dose 3 ml .ROUTE .STK-MED ONE - Progress Progress: pain not gone completely Progress Note: 04/06/21 20:38 She is given Toradol for symptomatic relief. Since patient has taken outpatient antibiotics with no significant improvement I believe patient would benefit with Rocephin shots which I recommended to take 3 shots and will give 1 today and 2 for next 2 days outpatient. Outpatient follow-up with ENT if does not feel any improvement after a week. Tylenol/ibuprofen as needed. Counseled pt/family regarding: diagnosis, need for follow-up - Departure Departure Disposition: Home Clinical Impression: Left otitis media Qualifiers: Otitis media type: unspecified Qualified Code(s): H66.92 - Otitis media, unspecified, left ear Condition: Stable Critical Care Time: No Referrals: MARCELO BAINS MD [Primary Care Provider] - (Call tomorrow for reevaluation) Additional Instructions: You need daily Rocephin shots for next 2 days. Follow-up with your primary care for reevaluation and may need referral for ENT. Take Tylenol/ibuprofen as needed for pain. Return to ER for any worsening. Continue with current medications.
[2021-04-06 20:54] VITALS: BP 119/61; PULSE 84; O2SAT 99
== END 2021-04-06 20:55 | disposition home or self-care (01) ==
LOC: ED 19:38
DX: H66.92 Otitis media, unspecified, left ear (principal)
CPT/HCPCS: 96372; 99284; J0696; J1885

== ENCOUNTER 2021-08-17 12:01 | Day surgery (SDC) | payer OTHER ==
[2012-04-04 00:37] VITALS: BP 128/80
[2021-08-17] MEDS ORDERED: BUPIVACAINE 0.5% VIAL IJ ONE (12:02)
[2021-08-17] MEDS ORDERED: Depo-Medrol 40 MG/ML IM ONE (12:02)
[2021-08-17] MEDS ORDERED: DIPRIVAN 200 MG/20 ML IV ONE (14:02)
[2021-08-17] MEDS ORDERED: Xylocaine-Mpf 2% 5 Ml Vial ONE (14:03)
[2021-08-17] MEDS ORDERED: Lactated Ringers 1,000 ML IV ONE (14:28)
--- NOTE | 2021-08-17 14:58 | XRAY ---
Indication: Right hip injection. Intraoperative fluoroscopy provided for 39 seconds. Single digital spot image submitted for interpretation demonstrates needle tip projecting lateral to the right femur neck. Small amount of contrast injected for needle tip placement. Correlate with intraoperative findings/report.
--- NOTE | 2021-08-17 15:06 | XRAY ---
39 seconds of fluoroscopy was used in surgery for a bilateral intra-articular hip injection.
== END 2021-08-17 14:33 | disposition home or self-care (01) ==
LOC: SDC-PAIN 12:01
PROVIDERS: ATTEND Psychiatry & Neurology Pain Medicine
DX: M16.0 Bilateral primary osteoarthritis of hip (principal); Z79.899 Other long term (current) drug therapy
CPT/HCPCS: 20610; 73521; 77002; 84703; J1030; J2704; Q9966

== ENCOUNTER 2021-09-14 11:10 | Day surgery (SDC) | payer OTHER ==
[2012-04-04 00:37] VITALS: BP 128/80
[2021-09-14] MEDS ORDERED: Depo-Medrol 40 MG/ML IM ONE (11:11)
[2021-09-14] MEDS ORDERED: Sodium Chloride 0.9(Preservative Free) 10 ML IJ ONE (11:11)
[2021-09-14] MEDS ORDERED: DIPRIVAN 200 MG/20 ML IV ONE (13:01)
[2021-09-14] MEDS ORDERED: Lactated Ringers 1,000 ML IV ONE (14:24)
--- NOTE | 2021-09-14 14:26 | XRAY ---
Indication: Left L4-S1 transforaminal KAYLIE. Intraoperative fluoroscopy provided for 48 seconds. 6 digital spot image submitted for interpretation demonstrates posterior needle tips projecting over the expected left L4 and L5 nerve roots. Small amount of contrast injected for needle tip placement. Correlate with intraoperative findings/report.
--- NOTE | 2021-09-14 14:48 | XRAY ---
48 seconds of fluoroscopy was used in surgery for a L4-S1 transforaminal KAYLIE.
== END 2021-09-14 13:30 | disposition home or self-care (01) ==
LOC: SDC-PAIN 11:10
PROVIDERS: ATTEND Psychiatry & Neurology Pain Medicine
DX: M54.16 Radiculopathy, lumbar region (principal); Z79.899 Other long term (current) drug therapy
CPT/HCPCS: 64483; 64484; 72100; 77003; 84703; J1030; J2704; Q9966

== ENCOUNTER 2021-10-13 11:27 | Day surgery (SDC) | payer OTHER ==
[2012-04-04 00:37] VITALS: BP 128/80
[2021-10-13] MEDS ORDERED: Depo-Medrol 40 MG/ML IM ONE (11:28)
[2021-10-13] MEDS ORDERED: BUPIVACAINE 0.5% VIAL IJ ONE (11:28)
[2021-10-13] MEDS ORDERED: Sodium Chloride 0.9(Preservative Free) 10 ML IJ ONE (11:28)
[2021-10-13] MEDS ORDERED: DIPRIVAN 200 MG/20 ML IV ONE (13:45)
[2021-10-13] MEDS ORDERED: Lactated Ringers 1,000 ML IV ONE (14:06)
--- NOTE | 2021-10-13 15:16 | XRAY ---
Indication: Right greater trochanter bursa injection Intraoperative fluoroscopy provided for 10 seconds. Single digital spot image obtained prone submitted for interpretation demonstrates needle tip just lateral to the right femur greater trochanter. Small amount of contrast injected for needle tip placement. Correlate with intraoperative findings/report.
--- NOTE | 2021-10-13 15:16 | XRAY ---
Indication: Right L4-S1 transforaminal KAYLIE Intraoperative fluoroscopy provided for 35 seconds. 5 digital spot images submitted for interpretation demonstrates posterior needle tips projecting over the expected right L4 and L5 nerve roots. Small amount of contrast injected for needle tip placement. Correlate with intraoperative findings/report.
--- NOTE | 2021-10-13 15:21 | XRAY ---
10 seconds fluoroscopy time in surgery for injection of the greater trochanter of the right hip.
--- NOTE | 2021-10-13 15:21 | XRAY ---
35 seconds fluoroscopy time in surgery for right L4-S1 transforaminal KAYLIE.
== END 2021-10-13 14:12 | disposition home or self-care (01) ==
LOC: SDC-PAIN 11:27
PROVIDERS: ATTEND Psychiatry & Neurology Pain Medicine
DX: M54.16 Radiculopathy, lumbar region (principal); M70.61 Trochanteric bursitis, right hip; Z79.899 Other long term (current) drug therapy
CPT/HCPCS: 20610; 36415; 64483; 64484; 72100; 73501; 77002; 77003; 81025; J1030; J2704; Q9966

== ENCOUNTER 2022-02-01 13:33 | Day surgery (SDC) | payer OTHER ==
[2012-04-04 00:37] VITALS: BP 128/80
[2022-02-01] MEDS ORDERED: LIDOCAINE HCL 2% 100 MG/5 ML IJ ONE (13:34)
[2022-02-01] MEDS ORDERED: Xylocaine-Mpf 2% 5 Ml Vial ONE (14:55)
[2022-02-01] MEDS ORDERED: DIPRIVAN 200 MG/20 ML IV ONE (14:55)
[2022-02-01] MEDS ORDERED: Lactated Ringers 1,000 ML IV ONE (15:09)
--- NOTE | 2022-02-01 16:27 | XRAY ---
Indication: Left C2-C5 MBB. Intraoperative fluoroscopy provided for 19 seconds. 2 digital spot image submitted for interpretation demonstrates posterior needle tips projecting over the expected left C2-C5 nerve roots. Correlate with intraoperative findings/report.
--- NOTE | 2022-02-01 16:46 | XRAY ---
19 seconds of fluoroscopy was used in surgery for a left C2-C5 MBB.
== END 2022-02-01 15:25 | disposition home or self-care (01) ==
LOC: SDC-PAIN 13:33
PROVIDERS: ATTEND Psychiatry & Neurology Pain Medicine
DX: M47.812 Spondylosis without myelopathy or radiculopathy, cervical region (principal); Z79.899 Other long term (current) drug therapy
CPT/HCPCS: 64490; 64491; 64492; 72040; 77002; 81025; J2704

== ENCOUNTER 2022-03-22 10:58 | Day surgery (SDC) | payer OTHER ==
[2012-04-04 00:37] VITALS: BP 128/80
[2022-03-22] MEDS ORDERED: Marcaine Mpf 0.5% Vial 30 Ml IJ ONE (10:59)
[2022-03-22] MEDS ORDERED: Lactated Ringers 1,000 ML IV ONE (12:28)
[2022-03-22] MEDS ORDERED: DIPRIVAN 200 MG/20 ML IV ONE (12:37)
--- NOTE | 2022-03-22 19:18 | XRAY ---
Indication: Left C2-C5 MBB. Intraoperative fluoroscopy provided for 24 seconds. 2 digital spot image submitted for interpretation demonstrates posterior needle tips projecting over the expected left C2-C5 nerve roots. Correlate with intraoperative findings/report.
--- NOTE | 2022-03-22 19:34 | XRAY ---
24 seconds of fluoroscopy was used in surgery for a left C2-C5 MBB.
== END 2022-03-22 13:10 | disposition home or self-care (01) ==
LOC: SDC-PAIN 10:58
PROVIDERS: ATTEND Psychiatry & Neurology Pain Medicine
DX: M47.812 Spondylosis without myelopathy or radiculopathy, cervical region (principal); Z79.899 Other long term (current) drug therapy
CPT/HCPCS: 64490; 64491; 64492; 72040; 77002; 81025; J2704

== ENCOUNTER 2022-04-19 12:44 | Day surgery (SDC) | payer OTHER ==
[2012-04-04 00:37] VITALS: BP 128/80
[2022-04-19] MEDS ORDERED: LIDOCAINE HCL 2% 100 MG/5 ML IJ ONE (12:45)
[2022-04-19] MEDS ORDERED: DIPRIVAN 200 MG/20 ML IV ONE (15:11)
[2022-04-19] MEDS ORDERED: Lactated Ringers 1,000 ML IV ONE (15:50)
--- NOTE | 2022-04-19 16:45 | XRAY ---
Indication: Right C2-C5 MBB. Intraoperative fluoroscopy provided for 27 seconds. 2 digital spot image submitted for interpretation demonstrates posterior needle tips projecting over the expected right C2-C5 nerve roots. Correlate with intraoperative findings/report.
--- NOTE | 2022-04-19 16:58 | XRAY ---
27 seconds fluoroscopy time in surgery for right C2-C5 MBB.
== END 2022-04-19 15:45 | disposition home or self-care (01) ==
LOC: SDC-PAIN 12:44
PROVIDERS: ATTEND Psychiatry & Neurology Pain Medicine
DX: M47.812 Spondylosis without myelopathy or radiculopathy, cervical region (principal); Z79.899 Other long term (current) drug therapy
CPT/HCPCS: 64490; 64491; 64492; 72040; 77002; 81025; J2704

== ENCOUNTER 2022-05-31 13:58 | Day surgery (SDC) | payer OTHER ==
[2012-04-04 00:37] VITALS: BP 128/80
[2022-05-31] MEDS ORDERED: BUPIVACAINE 0.5% VIAL IJ ONE (13:59)
[2022-05-31] MEDS ORDERED: Pepcid 20 MG VIAL IV ONE (15:33)
[2022-05-31] MEDS ORDERED: Versed 2 MG/2 ML Injection ONE (15:34)
[2022-05-31] MEDS ORDERED: Reglan 10 MG/2 ML ONE (15:34)
[2022-05-31] MEDS ORDERED: DIPRIVAN 200 MG/20 ML IV ONE (16:38)
[2022-05-31] MEDS ORDERED: Lactated Ringers 1,000 ML IV ONE (16:45)
--- NOTE | 2022-05-31 20:22 | XRAY ---
Indication: Right C2-C5 MBB. Intraoperative fluoroscopy provided for 25 seconds. 3 digital spot images submitted for interpretation demonstrates posterior needle tips projecting over the expected right C2-C5 nerve roots. Correlate with intraoperative findings/report.
--- NOTE | 2022-06-01 09:13 | XRAY ---
25 seconds of fluoroscopy was used in surgery for a right C2-C5 MBB.
== END 2022-05-31 17:10 | disposition home or self-care (01) ==
LOC: SDC-PAIN 13:58
PROVIDERS: ATTEND Psychiatry & Neurology Pain Medicine
DX: M47.812 Spondylosis without myelopathy or radiculopathy, cervical region (principal); Z79.899 Other long term (current) drug therapy
CPT/HCPCS: 36415; 64490; 64491; 64492; 72040; 77002; 84703; J2250; J2704

== ENCOUNTER 2022-06-28 08:05 | Day surgery (SDC) | payer OTHER ==
[2012-04-04 00:37] VITALS: BP 128/80
[2022-06-28] MEDS ORDERED: Decadron 4 MG INJ IV ONE (08:06)
[2022-06-28] MEDS ORDERED: LIDOCAINE HCL 1% 50 MG/5 ML VL PF IJ ONE (08:06)
[2022-06-28] MEDS ORDERED: BUPIVACAINE 0.5% VIAL IJ ONE (08:06)
[2022-06-28] MEDS ORDERED: DIPRIVAN 200 MG/20 ML IV ONE ×2 (09:24→09:33)
[2022-06-28] MEDS ORDERED: Lactated Ringers 1,000 ML IV ONE (10:22)
--- NOTE | 2022-06-28 10:47 | XRAY ---
Indication: Left C2-C5 RFA. Intraoperative fluoroscopy provided for 51 seconds. 4 digital spot images submitted for interpretation demonstrates posterior needle tips projecting over the expected left C2-C5 nerve roots. Correlate with intraoperative findings/report.
--- NOTE | 2022-06-28 12:22 | XRAY ---
51 seconds of fluoroscopy was used in surgery for a left C2-C5 RFA.
== END 2022-06-28 10:05 | disposition home or self-care (01) ==
LOC: SDC-PAIN 08:05
PROVIDERS: ATTEND Psychiatry & Neurology Pain Medicine
DX: M47.812 Spondylosis without myelopathy or radiculopathy, cervical region (principal); Z79.899 Other long term (current) drug therapy
CPT/HCPCS: 64633; 64634; 72040; 77002; 81025; J1100; J2001; J2704

== ENCOUNTER 2022-07-05 08:05 | Day surgery (SDC) | payer OTHER ==
[2012-04-04 00:37] VITALS: BP 128/80
[2022-07-05] MEDS ORDERED: BUPIVACAINE 0.5% VIAL IJ ONE (08:06)
[2022-07-05] MEDS ORDERED: Decadron 4 MG INJ IV ONE (08:06)
[2022-07-05] MEDS ORDERED: LIDOCAINE HCL 1% 50 MG/5 ML VL PF IJ ONE (08:06)
--- NOTE | 2022-07-05 10:16 | XRAY ---
Indication: Right C2-C5 RFA. Intraoperative fluoroscopy provided for 46 seconds. 2 digital spot image submitted for interpretation demonstrates posterior needle tips projecting over the expected right C2-C5 nerve roots. Correlate with intraoperative findings/report.
--- NOTE | 2022-07-05 10:24 | XRAY ---
46 seconds fluoroscopy time in surgery for right C2-C5 RFA.
[2022-07-05] MEDS ORDERED: Lactated Ringers 1,000 ML IV ONE (11:34)
== END 2022-07-05 09:49 | disposition home or self-care (01) ==
LOC: SDC-PAIN 08:05
PROVIDERS: ATTEND Psychiatry & Neurology Pain Medicine
DX: M47.812 Spondylosis without myelopathy or radiculopathy, cervical region (principal)
CPT/HCPCS: 64633; 64634; 72040; 77002; 81025; J1100; J2001

== ENCOUNTER 2022-12-27 12:08 | Day surgery (SDC) | payer OTHER ==
[2012-04-04 00:37] VITALS: BP 128/80
[2022-12-27] MEDS ORDERED: BUPIVACAINE 0.5% VIAL IJ ONE (12:09)
[2022-12-27] MEDS ORDERED: Depo-Medrol 40 MG/ML IM ONE (12:09)
[2022-12-27 13:35] LABS: HCG URINE TEST NEGATIVE (NEGATIVE)
[2022-12-27] MEDS ORDERED: DIPRIVAN 200 MG/20 ML IV ONE (14:28)
[2022-12-27] MEDS ORDERED: Zofran 4 MG/2 ML VIAL ONE (14:31)
[2022-12-27] MEDS ORDERED: Lactated Ringers 1,000 ML IV ONE (14:37)
--- NOTE | 2022-12-27 17:02 | XRAY ---
Indication: Right shoulder and subacromial bursa injection. Intraoperative fluoroscopy provided for 18 seconds. 2 digital spot image submitted for interpretation demonstrates needle tip projecting over the right glenohumeral joint superiorly. Second needle tip subacromial. Small amount of contrast injected for both needle tip placement. Correlate with intraoperative findings/report.
--- NOTE | 2022-12-27 17:12 | XRAY ---
18 seconds of fluoroscopy was used in surgery for a right intra-articular shoulder and subacromial bursa injection.
== END 2022-12-27 15:00 | disposition home or self-care (01) ==
LOC: SDC-PAIN 12:08
PROVIDERS: ATTEND Psychiatry & Neurology Pain Medicine
DX: M19.011 Primary osteoarthritis, right shoulder (principal); M75.51 Bursitis of right shoulder; Z79.899 Other long term (current) drug therapy
CPT/HCPCS: 20610; 73030; 77002; 81025; J1030; J2405; J2704; Q9966

== ENCOUNTER 2023-03-07 07:00 | Day surgery (SDC) | payer OTHER ==
[2012-04-04 00:37] VITALS: BP 128/80
[2023-03-07] MEDS ORDERED: BUPIVACAINE 0.5% VIAL IJ ONE (07:01)
[2023-03-07] MEDS ORDERED: LIDOCAINE HCL 1% 50 MG/5 ML VL PF IJ ONE (07:01)
[2023-03-07] MEDS ORDERED: Depo-Medrol 40 MG/ML IM ONE (07:01)
[2023-03-07 07:45] LABS: HCG SERUM TEST NEGATIVE (NEGATIVE)
[2023-03-07] MEDS ORDERED: DIPRIVAN 200 MG/20 ML IV ONE (08:13)
[2023-03-07] MEDS ORDERED: Versed 2 MG/2 ML Injection ONE (08:22)
[2023-03-07] MEDS ORDERED: Lactated Ringers 1,000 ML IV ONE (08:33)
--- NOTE | 2023-03-07 09:55 | XRAY ---
Indication: Right L4-S1 RFA. Intraoperative fluoroscopy was provided for 28 seconds. 4 digital spot images submitted for interpretation demonstrates posterior needle tips projecting over expected right L4-S1 nerve roots. Correlate with intraoperative findings/report.
--- NOTE | 2023-03-07 09:59 | XRAY ---
28 seconds of fluoroscopy was used in surgery for a right L4-S1 RFA.
== END 2023-03-07 08:50 | disposition home or self-care (01) ==
LOC: SDC-PAIN 07:00
PROVIDERS: ATTEND Psychiatry & Neurology Pain Medicine
DX: M47.816 Spondylosis without myelopathy or radiculopathy, lumbar region (principal)
CPT/HCPCS: 36415; 64635; 64636; 72100; 77002; 82947; 84703; J1030; J2001; J2250; J2704

== ENCOUNTER 2023-05-23 07:32 | Day surgery (SDC) | payer OTHER ==
[2012-04-04 00:37] VITALS: BP 128/80
[2023-05-23] MEDS ORDERED: Depo-Medrol 40 MG/ML IM ONE (07:33)
[2023-05-23] MEDS ORDERED: BUPIVACAINE 0.5% VIAL IJ ONE (07:33)
[2023-05-23 08:30] LABS: HCG SERUM TEST NEGATIVE (NEGATIVE)
[2023-05-23] MEDS ORDERED: DIPRIVAN 200 MG/20 ML IV ONE ×2 (08:59)
[2023-05-23] MEDS ORDERED: Lactated Ringers 1,000 ML IV ONE (13:42)
--- NOTE | 2023-05-23 21:03 | XRAY ---
Indication: Bilateral hip injection. Intraoperative fluoroscopy provided for 56 seconds. 2 digital spot image submitted for interpretation demonstrates needle tip lateral to the left/right femur necks. Small amount of contrast injected for needle tip placement. Correlate with intraoperative findings/report.
--- NOTE | 2023-05-23 21:41 | XRAY ---
56 seconds of fluoroscopy was used in surgery for a bilateral intra-articular hip injection.
== END 2023-05-23 09:22 | disposition home or self-care (01) ==
LOC: SDC-PAIN 07:32
PROVIDERS: ATTEND Psychiatry & Neurology Pain Medicine
DX: M16.12 Unilateral primary osteoarthritis, left hip (principal); M16.11 Unilateral primary osteoarthritis, right hip
CPT/HCPCS: 36415; 64635; 64636; 73521; 77002; 84703; J1030; J2704; Q9966

== ENCOUNTER → 2023-08-29 | Day surgery (SDC) | payer OTHER ==
[2012-04-04 00:37] VITALS: BP 128/80
[~2023-08-29] MED LIST changes: +BUPIVACAINE 0.5% VIAL IJ ONE; +Depo-Medrol 40 MG/ML IM ONE; -Ketamine HCl 50 MG/ML ONE; +LIDOCAINE HCL 1% 50 MG/5 ML VL PF IJ ONE; +Lactated Ringers 1,000 ML IV ONE; +Xylocaine-Mpf 2% 5 Ml Vial ONE
[2023-08-29 12:43] LABS: HCG URINE TEST NEGATIVE (NEGATIVE)
--- NOTE | 2023-08-29 16:49 | XRAY ---
Indication: Right hip and greater trochanter bursa injection. Intraoperative fluoroscopy provided for 42 seconds. 2 digital spot image submitted for interpretation demonstrates needle tip projecting lateral to right femur neck. Second needle tip lateral to greater trochanter. Small amount of contrast injected for both needle tip placement. Correlate with intraoperative findings/report.
--- NOTE | 2023-08-29 16:59 | XRAY ---
42 seconds of fluoroscopy was used in surgery for a right intra-articular hip and greater trochanteric bursa injection.
== END ==
LOC: SDC-PAIN 12:25
PROVIDERS: ATTEND Psychiatry & Neurology Pain Medicine
DX: M70.61 Trochanteric bursitis, right hip (principal); M16.11 Unilateral primary osteoarthritis, right hip
CPT/HCPCS: 20610; 36410; 73502; 76942; 77002; 81025; J1030; J2001; J2704; Q9966

== ENCOUNTER 2024-01-09 10:32 | Day surgery (SDC) | payer OTHER ==
[2012-04-04 00:37] VITALS: BP 128/80
[2024-01-09] MEDS ORDERED: BUPIVACAINE 0.5% VIAL IJ ONE (10:33)
[2024-01-09] MEDS ORDERED: Depo-Medrol 40 MG/ML IM ONE (10:33)
[2024-01-09 11:19] LABS: HCG SERUM TEST NEGATIVE (NEGATIVE)
[2024-01-09] MEDS ORDERED: Lactated Ringers 1,000 ML IV ONE (12:10)
[2024-01-09] MEDS ORDERED: DIPRIVAN 200 MG/20 ML IV ONE (12:14)
--- NOTE | 2024-01-09 13:16 | XRAY ---
Indication: Left hip and greater trochanter bursa injection. Intraoperative fluoroscopy provided for 37 seconds. 3 lateral digital spot image submitted for interpretation demonstrates needle tip projecting lateral to left femur neck. Second needle tip lateral to greater trochanter. Small amount of contrast injected for needle tip placement. Correlate with intraoperative findings/report.
--- NOTE | 2024-01-09 13:18 | XRAY ---
37 seconds of fluoroscopy was used insurgery for a left intra-articular hip and greater trochanteric bursa injection.
== END 2024-01-09 12:44 | disposition home or self-care (01) ==
LOC: SDC-PAIN 10:32
PROVIDERS: ATTEND Psychiatry & Neurology Pain Medicine
DX: M16.12 Unilateral primary osteoarthritis, left hip (principal); M25.551 Pain in right hip; M25.552 Pain in left hip
CPT/HCPCS: 20610; 36415; 73502; 77002; 84703; J2704; Q9966

== ENCOUNTER 2024-07-28 11:02 | Day surgery (SDC) | payer OTHER ==
--- NOTE | 2024-07-28 09:08 | HP ---
HISTORY OF PRESENT ILLNESS: Feels like something stuck in her upper esophagus when she eats good and it is able to go down in time. Had an ultrasound of her thyroid in the past but did not have the results at the time of the office visit. PAST MEDICAL HISTORY: She has had some reflux, arthritis, headaches, diabetes, hypertension, depression, anxiety, chronic pain syndrome, polycystic ovarian syndrome. HOME MEDICATIONS: Baclofen, Percocet, Ozempic, metformin, vitamin D2, omeprazole, topiramate, docusate sodium, lisinopril, pregabalin, and Folbic. ALLERGIES: Diclofenac, gabapentin, and morphine. PAST SURGICAL HISTORY: Had colonoscopy, had tubal and the pat. SOCIAL HISTORY: No smoking or alcohol abuse. FAMILY HISTORY: COPD and heart disease. REVIEW OF SYSTEMS: Twelve systems reviewed. Pertinent as noted above, chronic illnesses as above. No chest pain or palpitations currently. PHYSICAL EXAMINATION: GENERAL: Height 5 feet 3 inches. BMI 34.9. No acute distress. HEENT: Sclerae anicteric. NECK: No JVD. CHEST: Equal excursion, nonlabored breathing. CARDIOVASCULAR: Regular rate and rhythm. ABDOMEN: Soft. SKIN: Dry. EXTREMITIES: No cyanosis or edema. NEUROLOGIC: Alert, moving all extremities symmetrically. PSYCHIATRIC: Appropriate mood and affect. IMPRESSION: Dysphagia upper esophagus. Needs EGD. Possible dilatation. Possible biopsy. If patient continues to have problems and there is nothing grossly to dilate or issues above esophagus, she might need ENT opinion. Otherwise, risks of EGD and possible dilatation include but limited to bleeding, infection; risk of perforation possibly requiring open procedure, or transfer for stent placement; possibility of no improvement in swallowing possibly requiring other procedure, dilation, or referrals. Risk of possible no narrowing to dilate or possible neurologic or function problem that dilation would not benefit. Might need to EGD again down the road, but not limited to and patient agreed to planned procedure. We will proceed with EGD, possible biopsy and dilitation outpatient under MAC anesthesia. Otherwise, continue medication for anxiety, hypertension, diabetes, headaches, chronic pain syndrome for back and hip, as well as reflux.
[2024-07-28] MEDS ORDERED: Lactated Ringers 1,000 ML IV ONE (11:36)
[2024-07-28] MEDS: Lactated Ringers 1,000 ML IV SCH (11:41)
[2024-07-28] MEDS: Pepcid 20 MG VIAL IV ONE (11:42)
[2024-07-28 12:05] LABS: Hematocrit 32.1 % (34.1-44.9); Hemoglobin 9.9 g/dL (11.2-15.7); Mean Cell Volume 85.6 fL (79.4-94.8); Mean Corpuscular Hemoglobin 26.4 pg (25.6-32.2); Mean Corpuscular Hgb Concent. 30.8 g/dL (32.2-35.5); Mean Platelet Volume 10.2 fL (9.4-12.3); Platelet Count 341 x10^3/uL (182-369); Red Blood Count 3.75 x10^6/uL (3.93-5.22); Red Cell Distribution Width 15.4 % (11.7-14.4); White Blood Count 3.9 x10^3/uL (3.98-10.04)
[2024-07-28 12:20] LABS: HCG SERUM TEST NEGATIVE (NEGATIVE)
[2024-07-28 13:01] LABS: ANION GAP 14.1 MEQ/L (5-15); Calcium 9.2 mg/dL (8.4-10.2); Creatinine 1 0.73 mg/dL (0.52-1.04); EST GLOMERULAR FILTRATION RATE 109.2 ML/MIN; Potassium 4.2 mmol/L (3.5-5.1)
[2024-07-28] MEDS ORDERED: SUBLIMAZE 100 MCG/2 ML ONE (13:41)
[2024-07-28] MEDS ORDERED: Versed 2 MG/2 ML Injection ONE (13:41)
[2024-07-28] MEDS ORDERED: propofoL IV ONE (13:41)
[2024-07-28 14:40] VITALS: RESP 18
[2024-07-28 14:50] VITALS: BP 98/65; PULSE 69; TEMP 96.8; O2SAT 99
--- NOTE | 2024-07-29 09:42 | OP ---
SURGERY DATE/TIME: 07/28/2024 [id number] PREOPERATIVE DIAGNOSIS: Dysphagia. POSTOPERATIVE DIAGNOSES: 1) Gastric erythema, biopsy pending for Helicobacter pylori. 2) Proximal esophageal narrowing and spasm without any evidence of any mass or lesion to biopsy. PROCEDURE: 1) Esophagogastroduodenoscopy. 2) Cold biopsy antrum to evaluate for H pylori 3) Cold biopsy distal esophagus to evaluate for early inflammation distal esophagus. 4) Cold biopsy mid to proximal esophagus to evaluate for eosinophilic esophagitis. 5) Proximal esophageal balloon dilatation (size 20 balloon). SURGEON: Ant Marquis MD ANESTHESIA: MAC. ESTIMATED BLOOD LOSS: Minimal. INDICATIONS: Consent obtained. DESCRIPTION OF PROCEDURE AND FINDINGS: Patient was taken to endoscopy room. MAC anesthesia induced. After official time-out, no disagreement in planned procedure. Bite block positioned. Videogastroscope passed down the oropharynx. Proximal esophagus area was a little bit spasm and narrowed. There was no evidence of any mass or lesion to biopsy but as she was having symptoms there it was felt it warranted dilation at the end of the procedure. Scope was easily passed down through the patent pylorus to the junction of the third and fourth portions of duodenum. Duodenum was grossly unremarkable. Scope pulled back in the stomach. There was some gastric erythema. Cold biopsy taken of that for H pylori or early inflammation. Good hemostasis noted. On retroflex, the GE junction was snug against the scope. Scope pulled back up to the GE junction, was about 35 cm. There was maybe some plus or minus minimal inflammation. Cold biopsy taken for evaluation. Good hemostasis noted. Otherwise, no signs of any mucosal lesions on withdrawal of the scope up the esophagus. In the mid to proximal esophagus, cold biopsy taken to evaluate for eosinophilic esophagitis to rule out other causes of dysphagia. Otherwise, again there was proximal esophagus narrowing of the area. There was no evidence of any mass or lesion to biopsy. It was felt as she was having symptoms here would benefit from dilatation. Therefore, scope was passed back down to the stomach. A 20 balloon catheter carefully inserted then carefully pulled back up to the proximal narrowed esophagus where the balloon was carefully inflated. The first stage for about 15 to 20 seconds, second stage 20 to 30 seconds, final stage size 20 balloon dilator was left for a minute and a half to 2 minutes. Balloon was then decompressed and withdrawn. The scope more easily passed through this area. There was no evidence of any full-thickness issues or injury secondary to dilatation. Scope was withdrawn. Patient tolerated the procedure well. Findings discussed with family out in the waiting area.
== END 2024-07-28 14:58 | disposition home or self-care (01) ==
LOC: SDC 11:02
PROVIDERS: ATTEND Surgery
DX: R13.10 Dysphagia, unspecified (principal); K22.2 Esophageal obstruction; K31.89 Other diseases of stomach and duodenum
CPT/HCPCS: 36415; 80048; 84703; 85027; 93005; C1726; J2250; J2704; J3010

== ENCOUNTER 2024-11-05 09:56 | Day surgery (SDC) | payer OTHER ==
[2012-04-04 00:37] VITALS: BP 128/80
[2024-11-05] MEDS ORDERED: BUPIVACAINE 0.5% VIAL IJ ONE (09:57)
[2024-11-05] MEDS ORDERED: LIDOCAINE HCL 1% 50 MG/5 ML VL IJ ONE (09:57)
[2024-11-05] MEDS ORDERED: methylPREDNISolone acetate IM ONE (09:57)
[2024-11-05 10:50] LABS: HCG URINE TEST NEGATIVE (NEGATIVE)
[2024-11-05] MEDS ORDERED: propofoL IV ONE (12:21)
[2024-11-05] MEDS ORDERED: Lactated Ringers 1,000 ML IV ONE (16:34)
--- NOTE | 2024-11-05 21:18 | XRAY ---
Indication: Right hip and greater trochanter bursa injection. Intraoperative fluoroscopy provided for 54 seconds. 2 digital spot image submitted for interpretation demonstrates needle tips projecting lateral to right femur neck and greater trochanter. Small amount of contrast injected for needle tip placement. Correlate with intraoperative findings/report.
--- NOTE | 2024-11-05 21:22 | XRAY ---
54 seconds of fluoroscopy was used in surgery for a right intra-articular hip and greater trochanteric bursa injection.
== END 2024-11-05 12:53 | disposition home or self-care (01) ==
LOC: SDC-PAIN 09:56
PROVIDERS: ATTEND Psychiatry & Neurology Pain Medicine
DX: M16.11 Unilateral primary osteoarthritis, right hip (principal); M70.61 Trochanteric bursitis, right hip
CPT/HCPCS: 20610; 73502; 77002; 81025; 82947; J1010; J2704; Q9966

== ENCOUNTER 2025-06-04 16:38 | Emergency (ER) | payer OTHER ==
--- NOTE | 2025-06-04 16:52 | ERPHSYRPT ---
- History of Present Illness Time Seen by Provider: 06/04/25 16:52 Source: patient, family Exam Limitations: no limitations Physician History: This a 35-year-old white female patient who states she has had bodyaches productive cough of yellow sputum and fevers intermittently over the last few weeks. Yesterday she had a temperature measurement of 101.7 F. She has no neck pain. She has no spinal pain. She had vomiting episodes yesterday. She is nauseated today but has not vomited. She denies shortness of breath. She denies chest pain. Patient has no known exposures to individuals with similar symptoms. Patient does have a history of diabetes, migraine headaches, gastroesophageal reflux disease, hypertension, anxiety/depression and asthma. Patient arrives per private vehicle and is a patient of Dr. Bains Timing/Duration: week(s) (3), intermittent, worse Fever Severity: gone Fever Therapy FAN MAIL CLERK: none Associated Symptoms: cough, headache, muscle aches, nausea/vomiting, No abdominal pain, No chest pain, No shortness of breath, No sore throat, No stiff neck Allergies/Adverse Reactions: diclofenac Allergy (Severe, Verified 06/04/25 16:44) Rash gabapentin Allergy (Severe, Verified 06/04/25 16:44) Swelling breakout swelling morphine Allergy (Severe, Verified 06/04/25 16:44) Vomiting breakout,vomiting Home Medications: Ergocalciferol (Vitamin D2) [Vitamin D] 50,000 unit PO .2XWEEKLY 11/16/16 [History] Metformin HCl 500 mg [Glucophage 500 MG] 1,000 mg PO BID 11/16/16 [History] Omeprazole 20 MG [Prilosec 20 mg] 40 mg PO DAILY 08/07/17 [History] Pregabalin [Lyrica 150Mg] 150 mg PO BID 08/13/17 [History] Topiramate 100 mg [Topamax 100 MG] 50 mg PO BID 10/29/17 [History] Folic Acid/Vitamin B Comp W-C* [Foltx (Folbic)] 1 tab PO DAILY 10/10/20 [History] Baclofen 20 mg PO DAILY 07/22/24 [History] Docusate Sodium 100 mg [Docusate Sodium 100 MG] 100 mg PO DAILY 07/22/24 [History] Lisinopril 20 mg [Zestril 20 MG] 20 mg PO DAILY 07/22/24 [History] Semaglutide [Ozempic] 0.25 mg SQ WEEKLY 07/22/24 [History] Hydrocodone/Acetaminophen [Hydrocodone-Acetamin 10-325 mg] 1 each PO QID PRN 06/04/25 [History] Hx Tetanus, Diphtheria Vaccination/Date Given: No Hx Influenza Vaccination/Date Given: No Hx Pneumococcal Vaccination/Date Given: No Travel Risk - International Travel Have you traveled outside of the country in past 3 weeks: No - Emerging Infectious Disease Are you exhibiting symptoms associated with any current EIDs: Yes Symptoms: Cough: New Onset, Fever, Headaches/Body Aches/, Vomitting - Review of Systems Constitutional: Fever (Yesterday 101.7 F. Fever gone today) Eyes: No Symptoms Ears, Nose, & Throat: No Symptoms Respiratory: Cough Cardiac: No Symptoms, No Chest Pain Abdominal/Gastrointestinal: Nausea (Today), Vomiting (Yesterday) Genitourinary Symptoms: No Symptoms Musculoskeletal: Arthralgias, Myalgias Skin: No Symptoms Neurological: No Symptoms Psychological: No Symptoms Endocrine: No Symptoms Hematologic/Lymphatic: No Symptoms Immunological/Allergic: No Symptoms All Other Systems: Reviewed and Negative - Past Medical History Pertinent Past Medical History: Yes Neurological History: No Pertinent History ENT History: No Pertinent History Cardiac History: Hypertension Respiratory History: Asthma Endocrine Medical History: No Pertinent History Musculoskeletal History: No Pertinent History GI Medical History: GERD, Gallbladder Disease, Other History: No Pertinent History Psycho-Social History: Anxiety, Depression Female Reproductive Disorders: No Pertinent History Other Medical History: PSH: 2 C-SECTIONS, GALL BLADDER REMOVED, WISDOM TEETH REMOVED. PMH: NONE OTHER THAN ABOVE - Past Surgical History Past Surgical History: Yes Neuro Surgical History: No Pertinent History Cardiac: No Pertinent History Respiratory: No Pertinent History Gastrointestinal: Cholecystectomy Genitourinary: No Pertinent History Musculoskeletal: No Pertinent History Female Surgical History: Section Other Surgical History: oral surgery, 3 c-sections,back steroid inj - Female History Hx Last Menstrual Period: currently - Social History Drug Use: none - Nursing Vital Signs Nursing Vital Signs: Initial Vital Signs Blood Pressure 124/67 06/04/25 16:43 O2 Sat by Pulse Oximetry 97 06/04/25 16:43 Pain Scale Pain Intensity 5 - Physical Exam General Appearance: no apparent distress, alert, anxiety Eye Exam: PERRL/EOMI, eyes nml inspection ENT Exam: normal ENT inspection, TMs normal, pharynx normal Neck Exam: normal inspection, non-tender, supple, full range of motion Respiratory Exam: normal breath sounds, lungs clear, no respiratory distress, no accessory muscle use, No chest non-tender, No respiratory distress Cardiovascular/Chest Exam: normal heart sounds, regular rate/rhythm Gastrointestinal/Abdominal Exam: soft, non tender, no distention, no mass, no guarding, no organomegaly, normal bowel sounds Pelvic Exam: not done Rectal Exam: not done Extremity Exam: non-tender, normal range of motion, normal inspection Neurologic Exam: alert, oriented x 3, cooperative, instructional technology director II-XII nml as tested, nml cerebellar function, nml station & gait, sensation nml Skin Exam: normal color, warm, dry Lymphatic: No adenopathy SpO2 Interpretation: normal O2 Delivery: Room Air - Course Nursing assessment & vital signs reviewed: Yes Ordered Tests: Active Orders 24 hr Category Date Time Status IV Insertion STAT Care 06/04/25 17:30 Active Pulse Oximetry (ED) STAT Care 06/04/25 17:30 Active CHEST 1 VIEW (PORTABLE) Stat Exams 06/04/25 17:31 Taken CBC W DIFF Stat Lab 06/04/25 17:45 Completed CMP Stat Lab 06/04/25 17:45 Completed CULTURE,URINE Stat Lab 06/04/25 17:51 Received HCG QUALITATIVE, SERUM Stat Lab 06/04/25 17:45 Completed Lactic Acid Stat Lab 06/04/25 17:50 Completed MONO SCREEN Stat Lab 06/04/25 17:45 Completed UA W/RFX UR CULTURE Stat Lab 06/04/25 17:51 Completed Medication Summary Discontinued Medications Generic Name Dose Route Start Last Admin Trade Name Freq PRN Reason Stop Dose Admin Sodium Chloride 1,000 mls @ 999 mls/hr 06/04/25 17:30 06/04/25 18:49 Sodium Chloride 0.9% 1000 Ml IV 06/04/25 18:30 Infused .Q1H1M STA Infusion Sodium Chloride Confirm 06/04/25 17:40 Sodium Chloride 0.9% 1000 Ml Administered 06/04/25 17:41 Dose 1,000 mls @ ud .ROUTE .STK-MED ONE Ondansetron HCl 4 mg 06/04/25 17:30 06/04/25 17:41 Ondansetron Hcl 4 Mg/2 Ml Vial IV 06/04/25 17:31 4 mg STAT STA Administration Ondansetron HCl Confirm 06/04/25 17:40 Ondansetron Hcl 4 Mg/2 Ml Vial Administered 06/04/25 17:41 Dose 4 mg .ROUTE .[facility] ONE Lab/Rad Data: Laboratory Result Diagrams 06/04/25 17:45 06/04/25 17:45 Laboratory Results 06/04/25 06/04/25 06/04/25 Range/Units Unknown 17:51 17:50 WBC (3.98-10.04) x10^3/uL RBC (3.93-5.22) x10^6/uL Hgb (11.2-15.7) g/dL Hct (34.1-44.9) % MCV (79.4-94.8) fL MCH (25.6-32.2) pg MCHC (32.2-35.5) g/dL RDW (11.7-14.4) % Plt Count (182-369) x10^3/uL MPV (9.4-12.3) fL Gran % (34.0-71.1) % Immature Gran % (Auto) (0.001-0.429) % Nucleat RBC Rel Count (0.00-0.2) % Eos # (Auto) (0.04-0.36) x10^3/uL Immature Gran # (Auto) (0.001-0.031) x10^3u/L Absolute Lymphs (auto) (1.18-3.74) x10^3/uL Absolute Monos (auto) (0.24-0.86) x10^3/uL Absolute Nucleated RBC (0.00-0.012) x10^3u/L Lymphocytes % (19.3-51.7) % Monocytes % (4.7-12.5) % Eosinophils % (0.7-5.8) % Basophils % (0.1-1.2) % Absolute Granulocytes (1.56-6.13) x10^3/uL Basophils # (0.01-0.08) x10^3/uL Sodium (135-145) mmol/L Potassium (3.5-5.1) mmol/L Chloride (98-107) mmol/L Carbon Dioxide (22-30) mmol/L Anion Gap (5-15) MEQ/L BUN (7-17) mg/dL Creatinine (0.52-1.04) mg/dL Estimated GFR ML/MIN Glucose (74-106) mg/dL Lactic Acid 1.2 (0.4-2.0) Calcium (8.4-10.2) mg/dL Total Bilirubin (0.2-1.3) mg/dL AST (14-36) U/L ALT (0-35) U/L Alkaline Phosphatase (38-126) U/L Serum Total Protein (6.3-8.2) g/dL Albumin (3.5-5.0) g/dL Serum HCG, Qual (NEGATIVE) Urine Color Yellow (Yellow) Urine Appearance Cloudy A (Clear) Urine pH 5.5 (4.6-8.0) Ur Specific Wilson 1.025 (1.005-1.030) Urine Protein Trace A (Negative) Urine Glucose (UA) Negative (Negative) mg/dL Urine Ketones Negative (Negative) Urine Blood Trace (Negative) Urine Nitrite Positive A (Negative) Urine Bilirubin Negative (Negative) Urine Urobilinogen 0.2 (0.2) mg/dL Ur Leukocyte Esterase Large A (Negative) U Hyaline Cast (Auto) 3-5 A (0-2) /LPF Urine Microscopic RBC 0-2 (0-5) /HPF Urine Microscopic WBC >100 A (0-5) /HPF Ur Epithelial Cells Rare (None Seen) /HPF Urine Bacteria Many A (None Seen) /HPF Urine Culture Reflexed YES (NO) Monoscreen (NEGATIVE) Influenza Type A Ag NEGATIVE (NEGATIVE) Influenza Type B Ag NEGATIVE (NEGATIVE) RSV (PCR) NEGATIVE (NEGATIVE) SARS-CoV-2 (PCR) NEGATIVE (NEGATIVE) Group A Strep Antibody NOT DETECTED (NEGATIVE) 06/04/25 06/04/25 06/04/25 Range/Units 17:45 17:45 17:45 WBC 8.8 (3.98-10.04) x10^3/uL RBC 3.85 L (3.93-5.22) x10^6/uL Hgb 9.3 L (11.2-15.7) g/dL Hct 32.0 L (34.1-44.9) % MCV 83.1 (79.4-94.8) fL MCH 24.2 L (25.6-32.2) pg MCHC 29.1 L (32.2-35.5) g/dL RDW 16.0 H (11.7-14.4) % Plt Count 380 H (182-369) x10^3/uL MPV 9.2 L (9.4-12.3) fL Gran % 66.2 (34.0-71.1) % Immature Gran % (Auto) 0.2 (0.001-0.429) % Nucleat RBC Rel Count 0.0 (0.00-0.2) % Eos # (Auto) 0.03 L (0.04-0.36) x10^3/uL Immature Gran # (Auto) 0.02 (0.001-0.031) x10^3u/L Absolute Lymphs (auto) 2.41 (1.18-3.74) x10^3/uL Absolute Monos (auto) 0.49 (0.24-0.86) x10^3/uL Absolute Nucleated RBC 0.00 (0.00-0.012) x10^3u/L Lymphocytes % 27.4 (19.3-51.7) % Monocytes % 5.6 (4.7-12.5) % Eosinophils % 0.3 L (0.7-5.8) % Basophils % 0.3 (0.1-1.2) % Absolute Granulocytes 5.82 (1.56-6.13) x10^3/uL Basophils # 0.03 (0.01-0.08) x10^3/uL Sodium 136 (135-145) mmol/L Potassium 3.8 (3.5-5.1) mmol/L Chloride 104 (98-107) mmol/L Carbon Dioxide 19 L (22-30) mmol/L Anion Gap 16.3 H (5-15) MEQ/L BUN 14 (7-17) mg/dL Creatinine 0.82 (0.52-1.04) mg/dL Estimated GFR 94.4 ML/MIN Glucose 87 (74-106) mg/dL Lactic Acid (0.4-2.0) Calcium 9.6 (8.4-10.2) mg/dL Total Bilirubin 0.50 (0.2-1.3) mg/dL AST 23 (14-36) U/L ALT 22 (0-35) U/L Alkaline Phosphatase 58 (38-126) U/L Serum Total Protein 8.7 H (6.3-8.2) g/dL Albumin 4.4 (3.5-5.0) g/dL Serum HCG, Qual NEGATIVE (NEGATIVE) Urine Color (Yellow) Urine Appearance (Clear) Urine pH (4.6-8.0) Ur Specific Wilson (1.005-1.030) Urine Protein (Negative) Urine Glucose (UA) (Negative) mg/dL Urine Ketones (Negative) Urine Blood (Negative) Urine Nitrite (Negative) Urine Bilirubin (Negative) Urine Urobilinogen (0.2) mg/dL Ur Leukocyte Esterase (Negative) U Hyaline Cast (Auto) (0-2) /LPF Urine Microscopic RBC (0-5) /HPF Urine Microscopic WBC (0-5) /HPF Ur Epithelial Cells (None Seen) /HPF Urine Bacteria (None Seen) /HPF Urine Culture Reflexed (NO) Monoscreen NEGATIVE (NEGATIVE) Influenza Type A Ag (NEGATIVE) Influenza Type B Ag (NEGATIVE) RSV (PCR) (NEGATIVE) SARS-CoV-2 (PCR) (NEGATIVE) Group A Strep Antibody (NEGATIVE) - Progress Progress: improved, re-examined Progress Note: 06/04/25 18:03 My medical decision making and the assignment of moderate complexity of this patient's medical issue is based on review of the patient's past medical history, review the patient's medication list, review the patient drug allergy list, history present of some physical findings on examination. The workup in this patient includes placement of intravenous line, infusion of normal saline solution, CBC, CMP, viral swabs, strep test, monotest, urinalysis, infusion of Zofran intravenously. We will also order chest x-ray Differential diagnosis includes but is not limited to viral illness, pulmonary infiltrate, urinary tract infection, dehydration, 06/04/25 19:09 I interpreted the patient's laboratory data results. Based on laboratory data results, the patient has a significant urinary tract infection and chronic anemia. I compared to past hemoglobin levels and this is slightly lower than her other levels but in the range. I have advised her of her workup results and she will follow-up with her primary care provider I interpreted the patient's preliminary chest x-ray report. I see no acute cardiopulmonary process. Counseled pt/family regarding: lab results, diagnosis, need for follow-up, rad results Medical Desision Making - Diagnostic Testing Diagnostic test were ordered, analyzed, and reviewed by me: Yes Radiological Interpretation: Interpreted by me - Risk of complications Low Risk: Low risk of morbidity from additional dx testing or treatment The pt has a mod risk of morbidity or mortality based on: Need for prescription drug management - Departure Departure Disposition: Home Clinical Impression: UTI (urinary tract infection), Nausea and vomiting Condition: Stable Critical Care Time: No Referrals: MARCELO BAINS MD [Primary Care Provider, [facility]] - Follow up/PCP as directed Additional Instructions: Drink plenty of clear liquids before advance your diet. Take your antibiotics as prescribed. Call your primary care provider tomorrow, 06/05/2025, to make arrangements for follow-up appointment to be seen in the next 3 to 5 days. Prescriptions: Cefdinir 300 mg PO BID #14 cap
[2025-06-04 16:57] VITALS: TEMP 98.7
[2025-06-04 17:32] LABS: Group A Strep NOT DETECTED (NEGATIVE)
[2025-06-04] MEDS ORDERED: Zofran 4 MG/2 ML VIAL ONE (17:40)
[2025-06-04] MEDS: Zofran 4 MG/2 ML VIAL IV STA (17:41)
[2025-06-04 17:45] LABS: INFLUENZA A NEGATIVE (NEGATIVE); INFLUENZA B NEGATIVE (NEGATIVE); RESPIRATORY SYNCTIAL VIRUS NEGATIVE (NEGATIVE); SARS-CoV-2 Xpert Express NEGATIVE (NEGATIVE)
[2025-06-04 17:53] LABS: BASOPHIL % 0.3 % (0.1-1.2); Basophil (Absolute #) 0.03 x10^3/uL (0.01-0.08); Eosinophil (Absolute #) 0.03 x10^3/uL (0.04-0.36); Hematocrit 32.0 % (34.1-44.9); Hemoglobin 9.3 g/dL (11.2-15.7); IMMATURE GRAN # 0.02 x10^3u/L (0.001-0.031); IMMATURE GRAN % 0.2 % (0.001-0.429); Lymphocyte (Absolute #) 2.41 x10^3/uL (1.18-3.74); Mean Corpuscular Hemoglobin 24.2 pg (25.6-32.2); Mean Corpuscular Hgb Concent. 29.1 g/dL (32.2-35.5); Monocyte (Absolute #) 0.49 x10^3/uL (0.24-0.86); NUCLEATED RBC # 0.00 x10^3u/L (0.00-0.012); NUCLEATED RBC % 0.0 % (0.00-0.2); Platelet Count 380 x10^3/uL (182-369); Red Blood Count 3.85 x10^6/uL (3.93-5.22); White Blood Count 8.8 x10^3/uL (3.98-10.04)
[2025-06-04 17:55] VITALS: RESP 12
[2025-06-04 18:06] LABS: Glucose, Urine Negative (Negative); Protein,Urine Dip Trace (Negative); RBC 0-2 /HPF (0-5); WBC >100 /HPF (0-5)
[2025-06-04 18:07] LABS: Calcium 9.6 mg/dL (8.4-10.2); Carbon Dioxide 19.0 mmol/L (22-30); Creatinine 1 0.82 mg/dL (0.52-1.04); EST GLOMERULAR FILTRATION RATE 94.4 ML/MIN; Glucose 87.0 mg/dL (74-106); Potassium 3.8 mmol/L (3.5-5.1); SGOT/AST 23.0 U/L (14-36); SGPT/ALT 22.0 U/L (0-35); Total Protein 8.7 g/dL (6.3-8.2)
[2025-06-04 18:20] LABS: HCG SERUM TEST NEGATIVE (NEGATIVE)
[2025-06-04] MEDS ORDERED: ROCEPHIN 1 GM / 100 ML NaCl 1 GM/100 ML IVPB IV ONE (19:23)
[2025-06-04] MEDS: ROCEPHIN 1 GM / 100 ML NaCl 1 GM/100 ML IVPB IV ONE (19:26)
[2025-06-04 19:53] VITALS: BP 96/64; PULSE 90; O2SAT 100
--- NOTE | 2025-06-05 08:48 | XRAY ---
Indication: Fever and cough. Comparison: February 08, 2018 Portable chest demonstrates new mild left base interstitial alveolar opacities, possible pneumonia. Remaining heart and lungs unremarkable. Bony thorax intact. Comment: Left lung finding not reported by interpreting ER clinician. Telephone report was given to Dr. Joy at 8:44 hours on June 05, 2025.
== END 2025-06-04 19:56 | disposition home or self-care (01) ==
LOC: ED 16:38
DX: N39.0 Urinary tract infection, site not specified (principal); R11.2 Nausea with vomiting, unspecified; R91.8 Other nonspecific abnormal finding of lung field; R50.9 Fever, unspecified; M79.10 Myalgia, unspecified site; R05.1 Acute cough; E11.9 Type 2 diabetes mellitus without complications; I10 Essential (primary) hypertension; Z79.84 Long term (current) use of oral hypoglycemic drugs; Z79.85 Long-term (current) use of injectable non-insulin antidiabetic drugs; Z79.891 Long term (current) use of opiate analgesic; Z79.899 Other long term (current) drug therapy